=== PATIENT | male | born 1960 | race Caucasian/White ===

== ENCOUNTER → 2019-05-01 15:57 | Outpatient (BNVA) | payer MEDICARE, MEDICAID, SELFPAY | PROVIDERS: Family Provider Nurse Practitioner Family; PCP Nurse Practitioner Family; Referring Provider Family Medicine; Visit Provider Nurse Practitioner Family | DX: J20.8 Acute bronchitis due to other specified organisms (principal); B96.89 Other specified bacterial agents as the cause of diseases classified elsewhere | CPT/HCPCS: 87804 ==

== ENCOUNTER → 2019-05-10 11:50 | Outpatient (BNVA) | payer MEDICARE, SELFPAY | PROVIDERS: Family Provider Nurse Practitioner Family; PCP Nurse Practitioner Family; Visit Provider Nurse Practitioner Family | DX: M25.571 Pain in right ankle and joints of right foot (principal) | CPT/HCPCS: 73610 ==

== ENCOUNTER 2021-02-19 15:49 | Inpatient (IN) | payer MEDICARE, SELFPAY ==
[2021-02-19 15:55] VITALS: BP 155/103; PULSE 112; RESP 18; TEMP 36.8; O2SAT 97
--- NOTE | 2021-02-19 16:17 | USR_ITS ---
PROCEDURE INFORMATION: Exam: US Abdomen, Limited; Right Upper Quadrant Exam date and time: 02/19/2021 4:17 PM Age: 60 years old Clinical indication: Abdominal pain; Epigastric; Additional info: Abd pain TECHNIQUE: Imaging protocol: US abdomen. Real time ultrasound with image documentation. Limited exam focused on the right upper quadrant. COMPARISON: No relevant prior studies available. FINDINGS: Pleural spaces: There is a right pleural effusion. Liver: Somewhat inhomogeneous without a discrete mass lesions seen. There are small echogenic foci seen in the liver in a starry shelley appearance. This is nonspecific however can be seen with hepatitis. Gallbladder: There is a positive sonographic [place] sign. Gallbladder wall is thickened measuring 5 mm. Common bile duct: Bile duct is normal in caliber measuring 3.4 mm. Pancreas: Visualized pancreas is unremarkable. Right kidney: Right kidney measures 10.7 x 5.9 x 6.6 cm. No evidence for hydronephrosis, calculi, or mass. US/US gall bladder [id number] IMPRESSION: 1. Gallbladder wall is thickened and there is a positive sonographic [place] sign. No gallbladder stones are seen. Acalculous cholecystitis is in the differential. Wall thickening can be seen secondary to systemic diseases as well such as congestive heart failure, renal failure, hepatic cirrhosis, and hypoalbuminemia. 2. There is a right pleural effusion. 3. There are small echogenic foci seen in the liver in a starry shelley appearance. This is nonspecific however can be seen with hepatitis. Radiation Dose CTDIVOL = (mGy): DLP = (mGy-cm)
--- NOTE | 2021-02-19 16:17 | ECG_ITS ---
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 Measurements Intervals [place] Rate: 110 P: [place]: QRS: -12 QRSD: 96 T: 94 QT: 342 QTc: 464 Interpretive Statements ATRIAL FIBRILLATION WITH RAPID VENTRICULAR RESPONSE INDETERMINATE AXIS POSSIBLE RIGHT VENTRICULAR CONDUCTION DELAY [RSR (QR) IN V1/V2] NONSPECIFIC ST & T-WAVE ABNORMALITY Compared to ECG 06/16/2014 16:29:21 Indeterminate axis now present T-wave abnormality now present Sinus rhythm no longer present Electronically Signed On 02-20-2021 0:27:12 CDT by Moo Bashir M.D. [id number]
--- NOTE | 2021-02-19 16:17 | CTR_ITS ---
PROCEDURE INFORMATION: Exam: CT Abdomen And Pelvis With Contrast Exam date and time: 02/19/2021 4:17 PM Age: 60 years old Clinical indication: Abdominal pain; Localized; Prior surgery; Surgery date: 6+ months; Surgery type: Appy, back; Patient HX: C/O upper abd pain x 2 weeks TECHNIQUE: Imaging protocol: Computed tomography of the abdomen and pelvis with contrast. Radiation optimization: All CT scans at this facility use at least one of these dose optimization techniques: automated exposure control; mA and/or kV adjustment per patient size (includes targeted exams where dose is matched to clinical indication); or iterative reconstruction. Contrast material: OMNI 300; Contrast volume: 94 ml; Contrast route: INTRAVENOUS (IV); COMPARISON: US gall bladder [id number] 02/19/2021 4:57 PM RADIATION DOSE METRICS: Total DLP (mGy-cm): 715.2 FINDINGS: Pleural spaces: Bilateral pleural effusions with adjacent compressive atelectasis. Heart: Cardiomegaly. Liver: There is periportal edema which can be seen with volume overload, hepatitis, or cholangitis. Gallbladder and bile ducts: There is gallbladder wall thickening. Pancreas: Normal. No ductal dilation. Spleen: Normal. No splenomegaly. Adrenal glands: Normal. No mass. Kidneys and ureters: There is bilateral renal striated enhancement. Stomach and bowel: Colonic constipation is present. Appendix: There has been an appendectomy. Intraperitoneal space: Subtle diffuse hazy mesentery stranding. Vasculature: There is calcified plaque in the lower abdominal aorta and iliac arteries. Lymph nodes: Unremarkable. No enlarged lymph nodes. Urinary bladder: Unremarkable as visualized. Reproductive: Unremarkable as visualized. Bones/joints: Patient is status post L3-L4 posterior lumbar fusion with instrumentation. Soft tissues: Unremarkable. CT/CT abdomen pelvis w con* [id number] IMPRESSION: 1. Bilateral renal striated enhancement. Differential includes pyelonephritis, renal infarction, and left common causes such is vasculitis, multiple myeloma, rhabdomyolysis. 2. Cardiomegaly with bilateral pleural effusions consistent with congestive heart failure. 3. There is periportal edema which can be seen with volume overload, hepatitis, or cholangitis. 4. There is gallbladder wall thickening. This can be seen with cholecystitis or other systemic causes such is congestive heart failure. 5. Colonic constipation is present. Radiation Dose CTDIVOL = (mGy): DLP = 715.2 (mGy-cm)
--- NOTE | 2021-02-19 16:19 | W.ED.ABDPA2 ---
Documented by User: Mando Shoemaker DO 02/22/21 06:30 HPI - Abdominal Pain General: Chief Complaint: Abdominal Pain Stated Complaint: UPPER ABD PAIN HURTS LIKE HELL Time Seen by Provider: 02/19/21 16:08 History of Present Illness: HPI narrative: 60-year-old male presents emergency room complaint of right upper quadrant epigastric abdominal pain. He says he has had this for the last 2 weeks. He was seen yesterday at [facility] had some imaging done there including CT was told it was negative. He was started on what he describes as a little green pill he is also started on something for reflux. He denies any hematemesis coffee-ground emesis. Denies dysuria urgency or frequency no shortness of breath. MD elicited complaint: abdominal pain Pertinent past history: none Onset (ago): week(s) (2) Pain Consistency: constant Location: RUQ Severity: severe Quality: cramping Radiation: none Exacerbating factors: nothing Relieving factors: nothing Associated Symptoms: Reports anorexia and GI cramping; Denies belching, bloating, change in bowel habits, change in stool character, chills, coffee ground emesis, constipation, diarrhea, dyspepsia, dysuria, excessive flatus, fever(s), heartburn, hematochezia, hematuria, hematemesis, fecal incontinence, loose stools, melena, nausea, poor appetite, syncope and vomiting Review of Systems Const: Denies: fever(s) or chills ENMT: Denies: throat pain, ear or mastoid pain, nasal discharge or nasal congestion Card: Denies: syncope Resp: Denies: dyspnea, productive cough or non-productive cough GI: Reports: GI cramping; Denies: nausea, vomiting, hematemesis, coffee ground emesis, heartburn, diarrhea, constipation, bloating, belching, excessive flatus, fecal incontinence, change in bowel habits, change in stool character, hematochezia or melena : Denies: dysuria or hematuria Skin/Breast: Denies: rash or pruritus PFSH ED PFSH: Medical History Atrial fibrillation Chronic anticoagulation DVT (deep venous thrombosis) August 2020 Rotator cuff arthropathy Surgical History History of appendectomy Family History Grandfather Cancer Mother Cancer Social History Smoking and tobacco status: current every day smoker Alcohol intake: former Physical Exam Const: COMMON NORMALS: no acute distress GENERAL APPEARANCE: cooperative and comfortable ORIENTATION/CONSCIOUSNESS: Yes awake, Yes oriented to person, Yes oriented to place and Yes oriented to time HENMT: COMMON NORMALS: normocephalic, atraumatic and hearing grossly normal bilaterally HEAD & SCALP: normocephalic and atraumatic Neck/C-Spine: COMMON NORMALS: no JVD Resp: COMMON NORMALS: normal respiratory effort, No retractions, No use of accessory muscles and clear to auscultation bilaterally AUSCULTATION: clear to auscultation bilaterally Cardio: COMMON NORMALS: no JVD, regular rate, regular rhythm and No murmurs present (Cardio) RATE: regular rate RHYTHM: regular rhythm GI: COMMON NORMALS: No hepatosplenomegaly present AUSCULTATION: Yes normoactive bowel sounds PALPATION: Yes Tenderness to palpation present (GI) Details: RUQ, Yes Guarding due to palpation present (GI) and Yes No hepatosplenomegaly present Extremity: COMMON NORMALS: normal to inspection, capillary refill normal, no clubbing, cyanosis or edema, no calf tenderness and no pedal edema Neuro: SENSORIUM/ORIENTATION: Yes oriented to person, Yes oriented to place and Yes oriented to time Skin: COMMON NORMALS: no rashes or lesions noted GENERAL SKIN EXAM: no rashes or lesions noted Course Vital Signs: Vital signs: Vital Signs Temperature 98 F 02/22/21 02:37 Pulse Rate 91 02/22/21 06:04 Respiratory Rate 36 H 02/22/21 02:37 Blood Pressure 120/87 02/22/21 02:37 Pulse Oximetry 98 02/22/21 02:37 MDM - Abdominal Pain MDM Narrative: Medical decision making narrative: Care turned over to Dr. Hammonds at change of shift see his notes for final diagnosis and disposition. Lab Data: Labs: Lab Results 02/19/21 02/19/21 02/19/21 16:23 16:23 16:23 WBC 10.3 10^3/uL H 10 ^3/uL (4.0-10.0) RBC 5.00 10^6/uL 10^6 /uL (4.1-5.3) Hgb 14.7 g/dL g/dL (11.7-16.6) Hct 45.5 % % (42.0-52.0) MCV 91.0 fl fl (80-94) MCH 29.4 pg pg (28.0-34.0) MCHC 32.3 g/dL g/dL (30.0-36.0) RDW 14.1 % % (12.1-15.1) Plt Count 162 10^3/cmm 10^3 /cmm (130-400) MPV 10.3 fL fL (7.4-10.4) Neut % (Auto) 67.2 % % Lymph % (Auto) 23.1 % % Mcmullen % (Auto) 7.3 % % Eos % (Auto) 1.6 % % Baso % (Auto) 0.5 % % Neut # (Auto) 6.93 10^3/uL 10^3 /uL (1.8-7.7) Lymph # (Auto) 2.4 10^3/uL 10^3/ uL (0.8-4.8) Mcmullen # (Auto) 0.8 10^3/uL 10^3/ uL (0.2-0.9) Eos # (Auto) 0.2 10^3/uL 10^3/ uL (0.0-0.8) Baso # (Auto) 0.1 10^3/uL 10^3/ uL (0.0-0.1) Nucleated RBC % (a uto) 0 % % Nucleated RBCs # 0.0 /100WBC /100W BC Sodium 141 mmol/L mmol/L (136-145) Potassium 4.1 mmol/L mmol/L (3.5-5.1) Chloride 107 mmol/L mmol/L (98-107) Carbon Dioxide 22 mmol/L mmol/L (22-29) Anion Gap 16.1 (5-19) BUN 19 mg/dL mg/dL (6-20) Creatinine 1.0 mg/dL mg/dL (0.7-1.2) GFR Calculation 76.7 mL/min L mL/ min (90-130) Glucose 115 mg/dL mg/dL (65-115) Calculated Osmolal ity 295 mOsm/kg mOsm/ kg (285-295) Lactic Acid 1.4 mmol/L mmol/L (0.5-2.2) Calcium 8.6 mg/dL mg/dL (8.5-10.5) Total Bilirubin 0.8 mg/dL mg/dL (0.15-1.2) AST 23 U/L U/L (0-40) ALT 27 U/L U/L (0-41) Alkaline Phosphata se 132 IU/L H IU/L (40-130) Creatine Kinase 38 U/L L U/L (39-308) Troponin T Baselin e Troponin T [address] [place] Troponin T Troponin T Hi Sens 6Hr Troponin T Hi Sens 6Hr Delta NT-Pro-B Natriuret Pep Total Protein 6.0 g/dL L g/dL (6.6-8.7) Albumin 3.6 g/dL g/dL (3.5-5.2) Globulin 2.4 g/dL g/dL (1.3-4.6) Lipase 18 U/L U/L (13-60) Urine Color Urine Appearance Urine pH Ur Specific Gravit y Urine Protein Urine Glucose (UA) Urine Ketones Urine Blood Urine Nitrate Urine Bilirubin Urine Urobilinogen Ur Leukocyte Zofia ase Urine RBC Urine WBC Ur Squamous Epith Cells Amorphous Sediment Urine Bacteria Urine Mucus Hepatitis A IgM Ab Hep Bs Antigen Hep Bs Antibody Hep B Core Total A b Hepatitis C Antibo dy 02/19/21 02/19/21 02/19/21 16:23 16:23 16:50 WBC RBC Hgb Hct MCV MCH MCHC RDW Plt Count MPV Neut % (Auto) Lymph % (Auto) Mcmullen % (Auto) Eos % (Auto) Baso % (Auto) Neut # (Auto) Lymph # (Auto) Mcmullen # (Auto) Eos # (Auto) Baso # (Auto) Nucleated RBC % (a uto) Nucleated RBCs # Sodium Potassium Chloride Carbon Dioxide Anion Gap BUN Creatinine GFR Calculation Glucose Calculated Osmolal ity Lactic Acid Calcium Total Bilirubin AST ALT Alkaline Phosphata se Creatine Kinase Troponin T Baselin e 16 ng/L H ng/L (0-15) Troponin T [address] [place] Troponin T Troponin T Hi Sens 6Hr Troponin T Hi Sens 6Hr Delta NT-Pro-B Natriuret Pep Total Protein Albumin Globulin Lipase Urine Color Yellow (Yellow) Urine Appearance Clear (CLEAR) Urine pH 5 (5-7) Ur Specific Gravit y 1.020 (1.005-1.030) Urine Protein Neg (Negative) Urine Glucose (UA) Norm (Normal) Urine Ketones Negative (Negative) Urine Blood 2+ H (Negative) Urine Nitrate Negative (Negative) Urine Bilirubin Neg (Negative) Urine Urobilinogen 1 mg/dL H mg/dL (Negative) Ur Leukocyte Zofia ase Negative (Negative) Urine RBC 0-4 /hpf H /hpf (0-2) Urine WBC None /hpf /hpf (0-5) Ur Squamous Epith Cells None /hpf /hpf (0-5) Amorphous Sediment Not Reportable Urine Bacteria Trace /hpf /hpf (NONE) Urine Mucus 1+ /hpf /hpf Hepatitis A IgM Ab Non-reactive (Nonreactive) Hep Bs Antigen Non-reactive (Nonreactive) Hep Bs Antibody 3.5 L (11.5-1000) Hep B Core Total A b Non-reactive (Nonreactive) Hepatitis C Antibo dy Non-reactive (Nonreactive) 02/19/21 02/19/21 02/19/21 18:15 18:15 21:58 WBC RBC Hgb Hct MCV MCH MCHC RDW Plt Count MPV Neut % (Auto) Lymph % (Auto) Mcmullen % (Auto) Eos % (Auto) Baso % (Auto) Neut # (Auto) Lymph # (Auto) Mcmullen # (Auto) Eos # (Auto) Baso # (Auto) Nucleated RBC % (a uto) Nucleated RBCs # Sodium Potassium Chloride Carbon Dioxide Anion Gap BUN Creatinine GFR Calculation Glucose Calculated Osmolal ity Lactic Acid Calcium Total Bilirubin AST ALT Alkaline Phosphata se Creatine Kinase Troponin T Baselin e Troponin T [address] [place] 17.03 ng/L H ng/L (0-15) Delta Troponin T 1.03 ABS# ABS# (0-10) Troponin T Hi Sens 6Hr 20.35 ng/L H ng/L (0-15) Troponin T Hi Sens 6Hr Delta 4.35 ng/L ng/L (0-12) NT-Pro-B Natriuret Pep 8619 pg/mL H pg/m L (0-125) Total Protein Albumin Globulin Lipase Urine Color Urine Appearance Urine pH Ur Specific Gravit y Urine Protein Urine Glucose (UA) Urine Ketones Urine Blood Urine Nitrate Urine Bilirubin Urine Urobilinogen Ur Leukocyte Zofia ase Urine RBC Urine WBC Ur Squamous Epith Cells Amorphous Sediment Urine Bacteria Urine Mucus Hepatitis A IgM Ab Hep Bs Antigen Hep Bs Antibody Hep B Core Total A b Hepatitis C Antibo dy Discharge Plan Discharge Patient Disposition: Admitted As Inpatient Admit Provider: Renetta Andres Clinical Impression: Acute acalculous cholecystitis Atrial fibrillation Qualifiers: Atrial fibrillation type: unspecified Qualified Code(s): I48.91 - Unspecified atrial fibrillation Condition: Fair Coding Level of Care Code ED Flight Information Expediter for Chg Fwd Exam Comprehensive Documented by User: Romeo Hammonds DO 02/19/21 20:44 HPI - Abdominal Pain General: Chief Complaint: Abdominal Pain Stated Complaint: UPPER ABD PAIN HURTS LIKE HELL Time Seen by Provider: 02/19/21 16:08 PFSH ED PFSH: Medical History Atrial fibrillation Chronic anticoagulation DVT (deep venous thrombosis) August 2020 Rotator cuff arthropathy Surgical History History of appendectomy Family History Grandfather Cancer Mother Cancer Social History Smoking and tobacco status: current every day smoker Alcohol intake: former Course Consultations: Consultation #1: Dmitry Time: 20:18 Vital Signs: Vital signs: Vital Signs Temperature 98 F 02/22/21 02:37 Pulse Rate 91 02/22/21 06:04 Respiratory Rate 36 H 02/22/21 02:37 Blood Pressure 120/87 02/22/21 02:37 Pulse Oximetry 98 02/22/21 02:37 MDM - Abdominal Pain MDM Narrative: Medical decision making narrative: 60-year-old male originally seen by Dr. Bright and checked out to me at shift change. This gentleman has right upper quadrant pain, and has thickened gallbladder wall both by CT and ultrasound. His liver enzymes are not elevated. His bile duct is not dilated. He will be admitted for cholecystitis. He also has an irregular heart rate, atrial fibrillation on the monitor and on EKG. His delta troponin is not positive. His heart rates around 110. he will go to [facility]. Lab Data: Labs: Lab Results 02/19/21 02/19/21 02/19/21 16:23 16:23 16:23 WBC 10.3 10^3/uL H 10 ^3/uL (4.0-10.0) RBC 5.00 10^6/uL 10^6 /uL (4.1-5.3) Hgb 14.7 g/dL g/dL (11.7-16.6) Hct 45.5 % % (42.0-52.0) MCV 91.0 fl fl (80-94) MCH 29.4 pg pg (28.0-34.0) MCHC 32.3 g/dL g/dL (30.0-36.0) RDW 14.1 % % (12.1-15.1) Plt Count 162 10^3/cmm 10^3 /cmm (130-400) MPV 10.3 fL fL (7.4-10.4) Neut % (Auto) 67.2 % % Lymph % (Auto) 23.1 % % Mcmullen % (Auto) 7.3 % % Eos % (Auto) 1.6 % % Baso % (Auto) 0.5 % % Neut # (Auto) 6.93 10^3/uL 10^3 /uL (1.8-7.7) Lymph # (Auto) 2.4 10^3/uL 10^3/ uL (0.8-4.8) Mcmullen # (Auto) 0.8 10^3/uL 10^3/ uL (0.2-0.9) Eos # (Auto) 0.2 10^3/uL 10^3/ uL (0.0-0.8) Baso # (Auto) 0.1 10^3/uL 10^3/ uL (0.0-0.1) Nucleated RBC % (a uto) 0 % % Nucleated RBCs # 0.0 /100WBC /100W BC Sodium 141 mmol/L mmol/L (136-145) Potassium 4.1 mmol/L mmol/L (3.5-5.1) Chloride 107 mmol/L mmol/L (98-107) Carbon Dioxide 22 mmol/L mmol/L (22-29) Anion Gap 16.1 (5-19) BUN 19 mg/dL mg/dL (6-20) Creatinine 1.0 mg/dL mg/dL (0.7-1.2) GFR Calculation 76.7 mL/min L mL/ min (90-130) Glucose 115 mg/dL mg/dL (65-115) Calculated Osmolal ity 295 mOsm/kg mOsm/ kg (285-295) Lactic Acid 1.4 mmol/L mmol/L (0.5-2.2) Calcium 8.6 mg/dL mg/dL (8.5-10.5) Total Bilirubin 0.8 mg/dL mg/dL (0.15-1.2) AST 23 U/L U/L (0-40) ALT 27 U/L U/L (0-41) Alkaline Phosphata se 132 IU/L H IU/L (40-130) Creatine Kinase 38 U/L L U/L (39-308) Troponin T Baselin e Troponin T [address] [place] Troponin T Troponin T Hi Sens 6Hr Troponin T Hi Sens 6Hr Delta NT-Pro-B Natriuret Pep Total Protein 6.0 g/dL L g/dL (6.6-8.7) Albumin 3.6 g/dL g/dL (3.5-5.2) Globulin 2.4 g/dL g/dL (1.3-4.6) Lipase 18 U/L U/L (13-60) Urine Color Urine Appearance Urine pH Ur Specific Gravit y Urine Protein Urine Glucose (UA) Urine Ketones Urine Blood Urine Nitrate Urine Bilirubin Urine Urobilinogen Ur Leukocyte Zofia ase Urine RBC Urine WBC Ur Squamous Epith Cells Amorphous Sediment Urine Bacteria Urine Mucus Hepatitis A IgM Ab Hep Bs Antigen Hep Bs Antibody Hep B Core Total A b Hepatitis C Antibo dy 02/19/21 02/19/21 02/19/21 16:23 16:23 16:50 WBC RBC Hgb Hct MCV MCH MCHC RDW Plt Count MPV Neut % (Auto) Lymph % (Auto) Mcmullen % (Auto) Eos % (Auto) Baso % (Auto) Neut # (Auto) Lymph # (Auto) Mcmullen # (Auto) Eos # (Auto) Baso # (Auto) Nucleated RBC % (a uto) Nucleated RBCs # Sodium Potassium Chloride Carbon Dioxide Anion Gap BUN Creatinine GFR Calculation Glucose Calculated Osmolal ity Lactic Acid Calcium Total Bilirubin AST ALT Alkaline Phosphata se Creatine Kinase Troponin T Baselin e 16 ng/L H ng/L (0-15) Troponin T [address] [place] Troponin T Troponin T Hi Sens 6Hr Troponin T Hi Sens 6Hr Delta NT-Pro-B Natriuret Pep Total Protein Albumin Globulin Lipase Urine Color Yellow (Yellow) Urine Appearance Clear (CLEAR) Urine pH 5 (5-7) Ur Specific Gravit y 1.020 (1.005-1.030) Urine Protein Neg (Negative) Urine Glucose (UA) Norm (Normal) Urine Ketones Negative (Negative) Urine Blood 2+ H (Negative) Urine Nitrate Negative (Negative) Urine Bilirubin Neg (Negative) Urine Urobilinogen 1 mg/dL H mg/dL (Negative) Ur Leukocyte Zofia ase Negative (Negative) Urine RBC 0-4 /hpf H /hpf (0-2) Urine WBC None /hpf /hpf (0-5) Ur Squamous Epith Cells None /hpf /hpf (0-5) Amorphous Sediment Not Reportable Urine Bacteria Trace /hpf /hpf (NONE) Urine Mucus 1+ /hpf /hpf Hepatitis A IgM Ab Non-reactive (Nonreactive) Hep Bs Antigen Non-reactive (Nonreactive) Hep Bs Antibody 3.5 L (11.5-1000) Hep B Core Total A b Non-reactive (Nonreactive) Hepatitis C Antibo dy Non-reactive (Nonreactive) 02/19/21 02/19/21 02/19/21 18:15 18:15 21:58 WBC RBC Hgb Hct MCV MCH MCHC RDW Plt Count MPV Neut % (Auto) Lymph % (Auto) Mcmullen % (Auto) Eos % (Auto) Baso % (Auto) Neut # (Auto) Lymph # (Auto) Mcmullen # (Auto) Eos # (Auto) Baso # (Auto) Nucleated RBC % (a uto) Nucleated RBCs # Sodium Potassium Chloride Carbon Dioxide Anion Gap BUN Creatinine GFR Calculation Glucose Calculated Osmolal ity Lactic Acid Calcium Total Bilirubin AST ALT Alkaline Phosphata se Creatine Kinase Troponin T Baselin e Troponin T [address] [place] 17.03 ng/L H ng/L (0-15) Delta Troponin T 1.03 ABS# ABS# (0-10) Troponin T Hi Sens 6Hr 20.35 ng/L H ng/L (0-15) Troponin T Hi Sens 6Hr Delta 4.35 ng/L ng/L (0-12) NT-Pro-B Natriuret Pep 8619 pg/mL H pg/m L (0-125) Total Protein Albumin Globulin Lipase Urine Color Urine Appearance Urine pH Ur Specific Gravit y Urine Protein Urine Glucose (UA) Urine Ketones Urine Blood Urine Nitrate Urine Bilirubin Urine Urobilinogen Ur Leukocyte Zofia ase Urine RBC Urine WBC Ur Squamous Epith Cells Amorphous Sediment Urine Bacteria Urine Mucus Hepatitis A IgM Ab Hep Bs Antigen Hep Bs Antibody Hep B Core Total A b Hepatitis C Antibo dy Discharge Plan Discharge Patient Disposition: Admitted As Inpatient Admit Provider: Renetta Andres Clinical Impression: Acute acalculous cholecystitis Atrial fibrillation Qualifiers: Atrial fibrillation type: unspecified Qualified Code(s): I48.91 - Unspecified atrial fibrillation Condition: Fair Coding Level of Care Code ED Flight Information Expediter for [facility] Fwd Exam Comprehensive
[2021-02-19 16:25] VITALS: BP 153/109; PULSE 119; O2SAT 99
[2021-02-19] MEDS: ondansetron 2 mg/ML SDV 2 mL 4 MG IVP ×2 (16:28→19:50)
[2021-02-19] MEDS: sodium chloride 0.9% 1,000 ML 999 ML IV ×2 (16:31→17:10)
[2021-02-19 16:35] VITALS: BP 142/113; PULSE 102; PULSE 104; O2SAT 100; O2SAT 98
[2021-02-19 16:36] LABS: Basophils # 0.1 10^3/uL (0.0-0.1); Basophils % 0.5 %; Eosinophils # 0.2 10^3/uL (0.0-0.8); Eosinophils % 1.6 %; Hematocrit 45.5 % (42.0-52.0); Hemoglobin 14.7 g/dL (11.7-16.6); Lymphocytes # 2.4 10^3/uL (0.8-4.8); Lymphocytes % 23.1 %; Mean Corpuscular HGB Conc 32.3 g/dL (30.0-36.0); Mean Corpuscular Hemoglobin 29.4 pg (28.0-34.0); Mean Platelet Volume 10.3 fL (7.4-10.4); Monocytes # 0.8 10^3/uL (0.2-0.9); Monocytes % 7.3 %; Neutrophils # 6.93 10^3/uL (1.8-7.7); Neutrophils % 67.2 %; Nucleated Red Blood Cells % 0 %; Platelet Count 162 10^3/cmm (130-400); Red Cell Distribution Width 14.1 % (12.1-15.1); White Blood Count 10.3 10^3/uL (4.0-10.0)
[2021-02-19 16:58] LABS: Lactic Sepsis W/Reflex 1.4 mmol/L (0.5-2.2)
[2021-02-19 16:59] LABS: Alanine Aminotransferase 27 U/L (0-41); Albumin Level 3.6 g/dL (3.5-5.2); Alkaline Phosphatase 132 IU/L (40-130); Anion Gap 16.1 (5-19); Aspartate Amino Transferase 23 U/L (0-40); Blood Urea Nitrogen 19 mg/dL (6-20); Calcium 8.6 mg/dL (8.5-10.5); Carbon Dioxide 22 mmol/L (22-29); Chloride 107 mmol/L (98-107); Creatine Phosphokinase 38 U/L (39-308); Globulin 2.4 g/dL (1.3-4.6); Glomerular Filtration Rate 76.7 mL/min (90-130); Glucose 115 mg/dL (65-115); Lipase 18 U/L (13-60); Osmolality Calculated 295 mOsm/kg (285-295); Potassium 4.1 mmol/L (3.5-5.1); Sodium 141 mmol/L (136-145); Total Bilirubin 0.8 mg/dL (0.15-1.2)
[2021-02-19 17:00] LABS: Troponin(5th) Baseline 16 ng/L (0-15)
[2021-02-19 17:14] LABS: Add Urine Microscopic? YES; Bilirubin Urine Neg (Negative); Blood Urine 2+ (Negative); Glucose Urine UA Norm (Normal); Ketones Urine Negative (Negative); Leukocyte Esterase Urine Negative (Negative); Nitrate Urine Negative (Negative); Protein Urine Neg (Negative); Urine Appearance Clear (CLEAR); Urine Color Yellow (Yellow); Urobilinogen Urine 1 mg/dL (Negative); pH Urine 5 (5-7)
[2021-02-19 17:19] LABS: Add Urine Culture? No; Bacteria Urine TRACE /hpf; Mucus Urine 1+ /hpf; RBC Urine 0-4 /hpf (0-2)
[2021-02-19] MEDS: iohexol 300 mg/mL 100 mL Btl IV (17:37)
[2021-02-19] MEDS: morphine 4 mg/mL SDV 1 mL IVP ×2 (17:58→19:28)
--- NOTE | 2021-02-19 18:12 | XRR_ITS ---
PROCEDURE INFORMATION: Exam: XR Chest Exam date and time: 02/19/2021 6:12 PM Age: 60 years old Clinical indication: Cough; Additional info: Dyspnea/cough TECHNIQUE: Imaging protocol: XR of the chest. Views: 1 view. COMPARISON: CT abdomen pelvis w con* [id number] 02/19/2021 5:28 PM FINDINGS: Lungs: Diffuse interstitial thickening with no focal consolidation. No evidence of engorgement of the pulmonary vasculature. Pleural spaces: Small to moderate right and small left pleural effusions better appreciated on CT. No pneumothorax. Heart/Mediastinum: Moderate cardiomegaly. Normal mediastinal contours. Bones/joints: Old healed right rib fractures. XR/XR chest 1V portable [id number] IMPRESSION: 1. Diffuse interstitial thickening, correlate for nonspecific infectious or inflammatory airways process. No focal consolidation. There may be underlying chronic interstitial thickening. 2. Cardiomegaly without typical features of congestive failure. 3. Small to moderate right and small left pleural effusions better appreciated on CT. Radiation Dose CTDIVOL = (mGy): DLP = (mGy-cm)
[2021-02-19 18:47] LABS: Troponin 5 2HR 17.03 ng/L (0-15); Troponin 5 2HR Delta 1.03 ABS# (0-10)
[2021-02-19 18:55] LABS: NT Pro B Type Natriuretic Pept 8619 pg/mL (0-125)
[2021-02-19] MEDS: FUROsemide 10 mg/mL SDV 4mL 40 MG IVP (19:28)
[2021-02-19] MEDS: piperacillin-tazobactam 4.5 GM in sodium chloride 0.9% (plus) 50 ML IV (19:28)
[2021-02-19] MEDS: fentaNYL 50 mcg/mL INJ 2mL IVP (19:50)
[2021-02-19 20:00] VITALS: BP 133/99; PULSE 98; RESP 22; O2SAT 96
[2021-02-19 21:10] VITALS: BP 122/90; PULSE 92; RESP 20; O2SAT 98
[2021-02-19 21:21] VITALS: RESP 20
[2021-02-19] MEDS: HYDROmorphone 1 mg/mL INJ 1 mL IVP (21:21)
--- NOTE | 2021-02-19 22:17 | ECG_ITS ---
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 Measurements Intervals [place] Rate: 89 P: [place]: QRS: -42 QRSD: 96 T: 96 QT: 375 QTc: 458 Interpretive Statements ATRIAL FIBRILLATION LEFT AXIS DEVIATION [QRS AXIS < -30] POSSIBLE RIGHT VENTRICULAR CONDUCTION DELAY [RSR (QR) IN V1/V2] ST DEVIATION AND MODERATE T-WAVE ABNORMALITY, CONSIDER LATERAL ISCHEMIA [-0.1+ mV T WAVE IN I/aVL/V5/V6] Compared to ECG 02/19/2021 16:27:08 Left-axis deviation now present Possible ischemia now present Indeterminate axis no longer present T-wave abnormality still present Electronically Signed On 02-20-2021 18:39:37 CDT by Shanon Salas M.D. [email or web address]
[2021-02-19 22:33] LABS: Troponin 5 6HR 20.35 ng/L (0-15); Troponin 5 6HR Delta 4.35 ng/L (0-12)
[2021-02-20] VITALS (54 sets, daily range): BP systolic 94–125; BP diastolic 69–82; PULSE 74–113; RESP 3–30; TEMP 36.6–36.7; O2SAT 93–96
[2021-02-20] MEDS: HYDROmorphone 1 mg/mL INJ 1 mL IVP ×3 (00:31→20:12)
--- NOTE | 2021-02-20 00:45 | USCV_ITS ---
Wild Nj Age: 60 Gender: M : 1960 Exam Date: 02/20/2021 10:38 Ordering Phys: Renetta Andres MD Technologist: Mabel Becerra [place] [facility] [place] Indication: A FIB, CHF BP: 102 / 71 HR: 94 Rhythm: Atrial fibrillation Technical Quality: Adequate MEASUREMENTS (Male / Female) Normal Values 2D ECHO LV Diastolic Diameter PLAX 5.4 cm 4.2 - 5.9 / 3.9 - 5.3 cm LV Systolic Diameter PLAX 5.0 cm IVS Diastolic Thickness 1.3 cm 0.6 - 1.0 / 0.6 - 0.9 cm IVS Systolic Thickness 1.4 cm LVPW Diastolic Thickness 1.4 cm 0.6 - 1.0 / 0.6 - 0.9 cm LVPW Systolic Thickness 1.7 cm LVOT Diameter 2.0 cm LV Ejection Fraction 2D Teich 14.0 % LV Ejection Fraction MOD 2C 25.6 % LV Ejection Fraction 2C AL 23.6 % LA Diameter 3.1 cm LA Width 3.2 cm LA Height 5.1 cm RA Width 2.9 cm RA Height 4.5 cm Aorta at Sinotubular Diameter 2.4 cm M-MODE Aortic Annulus Diameter 2.4 cm LA Ao Ratio MM 1.2 MV E Point Septal Separation 1.2 cm DOPPLER AV Peak Velocity 72.0 cm/s LVOT Peak Velocity 47.0 cm/s AV Area Cont Eq vti 2.7 cm squared AV Area Cont Eq pk 2.1 cm squared MV Peak Velocity 80.0 cm/s MV Area PHT 5.9 cm squared MV E' Velocity 47.0 cm/s Mitral E to MV E' Ratio 14.0 Mitral E to LV E' Lateral Ratio 11.9 Mitral E to LV E' Septal Ratio 17.4 TR Peak Velocity 251.9 cm/s TR Peak Gradient 25.4 mmHg TR Mean Velocity 183.4 cm/s TR Mean Gradient 14.7 mmHg TR Velocity Time Integral 68.8 cm TV Peak E Velocity 47.0 cm/s Right Atrial Pressure 15.0 mmHg Pulmonary Artery Systolic Pressu 40.4 mmHg PV Peak Velocity 68.0 cm/s RV Acceleration Time 0.1 s RV Ejection Time 0.2 s RV AcT/ET 0.3 FINDINGS Left Ventricle Severe diffuse hypokinesis of the left ventricle with ejection fraction of around 20%.mildly increased left ventricular cavity size. Right Ventricle Normal RV size with a slightly diminished ejection fraction Right Atrium Mildly increased right atrial size. Left Atrium Mildly increased left atrial size. Mitral Valve Thickened mitral valve. Mild mitral valve regurgitation. Aortic Valve Thickened aortic valve. Tricuspid Valve Mild tricuspid valve regurgitation. Pulmonic Valve Structurally normal pulmonic valve. Pericardium Normal pericardium without effusion. Aorta Normal aortic annulus size. CONCLUSIONS Severe diffuse hypokinesis of the left ventricle with ejection fraction of around 20%. Mildly increased left ventricular cavity size. Mild biatrial enlargement. Thickened mitral valve. Mild mitral valve regurgitation. Thickened aortic valve. Mild tricuspid valve regurgitation. Estimated pulmonary artery peak systolic pressure of 40 mmHg There are no intracardiac masses. There is no pericardial effusion. No previous study is available for comparison. Dr Shanon Salas MD [facility] (Electronically Signed) Final Date: 20 February 2021 17:18 S
[2021-02-20] MEDS: famotidine 20 mg/2 mL INJ IVP ×3 (03:35→23:54)
[2021-02-20] MEDS: piperacillin-tazobactam 3.375 GM in sodium chloride 0.9% (plus) 50 ML IV ×3 (03:36→20:09)
[2021-02-20] MEDS: ketorolac 30 mg/mL INJ 15 MG IVP ×3 (05:29→22:33)
--- NOTE | 2021-02-20 05:44 | NUR.SHIFT ---
Shift Note Frequent safety and comfort rounds continue. Orders and/or nursing care completed as indicated. Patient monitored for response to intervention and treatment(s). Education provided includes new medication zosyn (uses,dose,adverse reaction etc.) ]. Patient and/or business development representative verbalizes understanding. Will continue to monitor.
--- NOTE | 2021-02-20 06:01 | PM.HP ---
Providers/Chief Complaint Admitting Physician: Renetta Andres MD Primary Care Provider: Frantz Guerin MD Chief Complaint: UPPER ABD PAIN HURTS LIKE HELL History of Present Illness Wild Nj is a 60 year old male with past medical history of intermittent A. fib, history of DVT in August 2020, presenting to the hospital today with complaints of right upper quadrant pain that has been going on for 3 days now. He initially went to [facility] ER 2 days ago where he had a CAT scan of his abdomen, was reportedly told that CT is normal at discharge 2. However the pain persisted and he presented at [facility] last night. Describes the pain as 9 out of 10 intensity, located in the right upper quadrant, radiating around in a bandlike fashion. He has never had similar pain in the past. No history of alcohol prescription. No chest pain dyspnea or palpitations. CT of the abdomen and ultrasound concerning for acalculous cholecystitis. Associated symptoms include nausea, poor p.o. intake, abdominal bloatin, no vomiting. Small bowel movements over the past 2 days. Past history is notable for what appears to be an unprovoked DVT of the left lower extremity in August 2020. Patient describes undergoing what appears to be a thrombectomy per his description. Records have been requested. No cause was ever established for the DVT. He has been on Xarelto 15 mg p.o. daily since then. 2 days after leaving the hospital for the DVT admission, he states he returned to the hospital for fluid overload and was diagnosed with A. fib with RVR. However he is not on any rate control medications currently. Not currently on any diuretics. Review of systems negative for fever Review of Systems General: Reports: 10 or more systems reviewed and unremarkable except in HPI and below Const: Denies: fever(s), chills or body aches Eyes: Denies: change in vision, blurry vision or photophobia ENMT: Reports: hoarseness; Denies: throat pain, enlarged tonsils, odynophagia or nasal congestion Card: Denies: chest pain, palpitations, irregular heart rhythm, edema, swelling of feet/ankles, lightheadedness, pre-syncope, dyspnea on exertion or orthopnea Resp: Denies: dyspnea, productive cough, non-productive cough, wheezing, stridor, pain on inspiration, change in phlegm color, hemoptysis or chest congestion GI: Denies: abdominal pain, nausea, vomiting, hematemesis, coffee ground emesis, dysphagia, heartburn, diarrhea, constipation, GI cramping, change in stool character, hematochezia or melena : Denies: flank pain, dysuria, urinary frequency, urinary urgency, urinary hesitancy or hematuria Musc: Denies: neck pain, back pain, extremity pain, joint swelling, joint warmth or deformity Neuro: Denies: headache(s), numbness in extremities, weakness in extremities, sensory changes, difficulty walking, frequent falls, dizziness, vertigo, behavioral changes, Slurred speech present or seizure-like activity Psych: Denies: anxiety, depression, suicidal ideation or homicidal ideation Endo: Denies: polyuria, polydipsia, tired all the time, cold intolerance or hot flashes Shahriar/Lymph: Denies: easy bruising or easy bleeding Medications/Allergies Home Medications Medication Instructions Recorded Confirmed Last Taken Type esomeprazole magnesium [Nexium] 20 mg PO DAILY 02/20/21 02/20/21 Unknown History Allergies Allergy/AdvReac Type Severity Reaction Status Date / Time No Known Allergies Allergy Verified 05/01/19 16:13 PFSH Acute PFSH: Medical History (Updated 02/20/21 @ 06:19 by Renetta Andres MD) Atrial fibrillation Chronic anticoagulation DVT (deep venous thrombosis) August 2020 Rotator cuff arthropathy Surgical History (Updated 02/20/21 @ 06:12 by Renetta Andres MD) History of appendectomy Family History Grandfather Cancer Mother Cancer Social History Smoking and tobacco status: current every day smoker Alcohol intake: former Vitals/I&O/Wt Last Vital Signs Temp 98.1 F 02/20/21 00:40 Pulse 110 H 02/20/21 05:55 Resp 21 H 02/20/21 03:53 BP 115/82 02/20/21 03:53 Pulse Ox 94 02/20/21 03:53 02/19/21 02/19/21 02/20/21 14:59 22:59 06:59 Intake Total 1150 / 1150 1100 / 2250 Output Total 800 / 800 Balance 350 / 350 1100 / 1450 Weight last 48 hrs Weight 63.503 kg Physical Exam Narrative: EXAM NARRATIVE: General: No acute distress, AO x3 HEENT: PERRLA, pupils bilaterally equal and reactive, pallors not present Chest: Normal vesicular breath sounds, no added sounds, equal good air entry bilaterally CVS: S1-S2 regular, no murmurs, no tachycardia, no gallops, no rubs Abdomen: Soft, to palpation in epigastric and right upper quadrant, no organomegaly, bowel sounds present Neuro: No focal deficits, no facial deformity, AO x3, power 5/5 in all limbs Extremities: No edema clubbing or cyanosis Data : 02/19/21 16:23 02/19/21 16:23 Micro: Microbiology 02/19/21 20:30 Blood Culture - Preliminary Blood SPECIMEN COLLECTED 02/19/21 18:15 Blood Culture - Preliminary Blood SPECIMEN COLLECTED A&P Assessment and plan (1) Acute acalculous cholecystitis: Presenting today with right upper quadrant pain, poor p.o. intake, abdominal bloating. CT and ultrasound concerning for acalculous cholecystitis. N.p.o., Bowel rest Toradol and Dilaudid alternating for pain management As needed Zofran for nausea. Piperacillin tazobactam empirically Surgical consult to assess for cholecystectomy. Status: Acute (2) Atrial fibrillation: Currently rate controlled with heart rate between 90-1 10 Diagnosed in August 2020, per patient description also had presented with fluid overload versus CHF at the time of initial presentation. However do not see any diuretics or rate rate control medications on his home medication list. He takes lisinopril 2.5 mg p.o. daily. Also on Xarelto 15 mg p.o. daily for history of DVT and A. fib. Xarelto has been placed temporarily on hold in case moves to cholecystectomy Requested records from [facility] Started on metoprolol 2.5 mg IV every 4 hours for now, transition to p.o. once able to tolerate p.o. intake. Echocardiogram to estimate EF, assess valvular status, diastolic function. Status: Acute Qualifiers: Atrial fibrillation type: unspecified Qualified Code(s): I48.91 - Unspecified atrial fibrillation (3) Chronic anticoagulation: With Xarelto for DVT and A. fib as above. Placed on hold today, last dose taken 02/19/2021 If prolonged interruption anticipated, may need heparin versus Lovenox in the perioperative period Status: Acute (4) Pleural effusion: May be related to CHF given patient's history, elevated BNP Lasix 20 mg IV push every 24 hours Avoiding IV fluids for now Status: Acute Attestations Medical Necessity Statement*: Anticipate greater than 2 midnight admission for above defined care Coding Level of Care Code Acute Manager Mobile for [facility] F[facility] Diagnoses Acute acalculous cholecystitis K81.0 Atrial fibrillation I48.91 Atrial fibrillation type: unspecified Chronic anticoagulation Z79.01 Pleural effusion J90
[2021-02-20] MEDS: metoprolol tartrate 1 mg/1 mL SDV 5 mL 2.5 MG IVP ×2 (06:12→10:25)
--- NOTE | 2021-02-20 06:40 | P.CONIM_ITS ---
Providers/Reason For Consult Consulting Physician/Specialty*: Mukund Dejesus MD Reason for Consult*: Concern for cholecystitis associated with right upper quadrant abdominal pain Requesting Physician: Dr. Andres Attending Physician: Renetta Andres MD Primary Care Provider: Frantz Guerin MD History of Present Illness History of Present Illness Chief Complaint: I have a arnold in my stomach History of present illness: Mr. Wild Nj is a pleasent 60 year old male presents to the emergency department of [facility] with right upper quadrant abdominal pain, radiating around his torso. Patient gives history of nausea, bloating but no vomiting. Apparently the patient went to [facility] 2 to 3 days ago and had a CT scan of his abdomen and according to the patient it was normal and patient was discharged home. Patient denies similar episodes in the past. Past medical history of atrial fibrillation with RVR, history of DVT back in August 2020 and was placed on Xarelto. Per hospitalist input that the patient is currently not receiving any diuretics or any rate control medications. Patient undergone further work-up in the form of laboratory blood work that showed WBC count of 10.3 otherwise CBC within normal limits, alkaline phosphatase 132 otherwise LFTs are normal as well as bilirubin. Further work-up in the form of CT scan of the abdomen pelvis with contrast that was done . Bilateral renal striated enhancement. Differential includes pyelonephritis, renal infarction, and left common causes such is vasculitis, multiple myeloma, rhabdomyolysis. 2. Cardiomegaly with bilateral pleural effusions consistent with congestive heart failure. 3. There is periportal edema which can be seen with volume overload, hepatitis, or cholangitis. 4. There is gallbladder wall thickening. This can be seen with cholecystitis or other systemic causes such is congestive heart failure. 5. Colonic constipation is present. findings below. Ultrasound of the liver and gallbladder was done that showed: 1. Gallbladder wall is thickened and there is a positive sonographic [place] sign. No gallbladder stones are seen. Acalculous cholecystitis is in the differential. Wall thickening can be seen secondary to systemic diseases as well such as congestive heart failure, renal failure, hepatic cirrhosis, and hypoalbuminemia. 2. There is a right pleural effusion. 3. There are small echogenic foci seen in the liver in a starry shelley appearance. This is nonspecific however can be seen with hepatitis. Chest x-ray shows 1. Diffuse interstitial thickening, correlate for nonspecific infectious or inflammatory airways process. No focal consolidation. There may be underlying chronic interstitial thickening. 2. Cardiomegaly without typical features of congestive failure. 3. Small to moderate right and small left pleural effusions better appreciated on CT. General surgery was consulted for further evaluation with regard to the concern of potential cholecystitis Further history obtained from the patient as he denies any history of fatty dyspepsia in fact he eats fried chicken and addS dressing on the salad without any issues, which does not match the potential findings on the ultrasound and the CT scan with regard to the gallbladder. Patient reports heartburn intermittently. Patient reports that his symptoms has been going on for the past 2 months and just got worse over the past couple of weeks. Review of Systems General: Reports: 10 or more systems reviewed and unremarkable except in HPI and below Meds/Allergies Home Medications and Allergies Home Medications Medication Instructions Recorded Confirmed Last Taken Type esomeprazole magnesium [Nexium] 20 mg PO DAILY 02/20/21 02/20/21 Unknown History Allergies Allergy/AdvReac Type Severity Reaction Status Date / Time No Known Allergies Allergy Verified 02/20/21 07:08 Current Medications Current Medications Generic Name Dose Route Start Last Admin Trade Name Freq PRN Reason Stop Dose Admin Famotidine 20 mg 02/20/21 00:45 02/20/21 03:35 Famotidine 20 Mg/2 Ml Inj IVP 20 mg Q12H ANGELINA Administration Piperacillin Sod/Tazobactam 50 mls @ 12.5 mls/hr 02/20/21 04:00 02/20/21 03:52 Sod 3.375 gm/ Sodium Chloride IV Infused Q8H ANGELINA Infusion Protocol Ketorolac Tromethamine 15 mg 02/20/21 01:00 02/20/21 05:29 Ketorolac 30 Mg/Ml Inj IVP 02/25/21 00:59 15 mg Q8H PRN Administration MODERATE PAIN Metoprolol Tartrate 2.5 mg 02/20/21 06:00 02/20/21 06:12 Metoprolol Tartrate 1 Mg/1 Ml Sdv 5 Ml IVP 2.5 mg Q4H ANGELINA Administration PFSH Acute PFSH: Medical History Atrial fibrillation Chronic anticoagulation DVT (deep venous thrombosis) August 2020 Rotator cuff arthropathy Surgical History History of appendectomy Family History Grandfather Cancer Mother Cancer Social History Smoking and tobacco status: current every day smoker Alcohol intake: former Vitals/I&O/Wt Last Vital Signs Temp 98.1 F 02/20/21 00:40 Pulse 110 H 02/20/21 05:55 Resp 21 H 02/20/21 03:53 BP 115/82 02/20/21 03:53 Pulse Ox 94 02/20/21 03:53 02/19/21 02/19/21 02/20/21 14:59 22:59 06:59 Intake Total 1150 / 1150 1100 / 2250 Output Total 800 / 800 Balance 350 / 350 1100 / 1450 Weight last 48 hrs Weight 140 lb Physical Exam Const: COMMON NORMALS: no acute distress and patient oriented x3 GENERAL APPEARANCE: cooperative ORIENTATION/CONSCIOUSNESS: Yes awake, Yes oriented to person, Yes oriented to place and Yes oriented to time HENMT: COMMON NORMALS: normocephalic HEAD & SCALP: normocephalic Eye: COMMON NORMALS: Equal, round and reactive pupils present and no scleral icterus PUPIL: Yes Equal, round and reactive pupils present Lymph: LYMPHATIC: no lymphadenopathy noted Chest: COMMONS NORMALS: normal inspection of the chest Resp: COMMON NORMALS: normal respiratory effort and clear to auscultation bilaterally AUSCULTATION: clear to auscultation bilaterally Cardio: COMMON NORMALS: S1 normal heart sound present and S2 normal heart sound present; negative for No murmurs present (Cardio) HEART SOUNDS: S1 normal heart sound present and S2 normal heart sound present GI: COMMON NORMALS: Soft to palpation; negative for No hepatosplenomegaly present INSPECTION: Yes normal to inspection PALPATION: Yes Soft to palpation, No Firmness to palpation present (GI), Yes Tenderness to palpation present (GI) Details: RUQ (And epigastric area), No Guarding due to palpation present (GI), No Rigid due to palpation and No No hepatosplenomegaly present Extremity: NARRATIVE EXTREMITY EXAM: Left lower extremity scar for previous vein surgery Neuro: COMMON NORMALS: patient oriented x3 SENSORIUM/ORIENTATION: Yes oriented to person, Yes oriented to place and Yes oriented to time Psych: COMMON NORMALS: mental status grossly normal Skin: COMMON NORMALS: no rashes or lesions noted GENERAL SKIN EXAM: no rashes or lesions noted Data Micro: Micro: Microbiology 02/19/21 20:30 Blood Culture - Pr eliminary Blood SPECIMEN [facility] 02/19/21 18:15 Blood Culture - Pr eliminary Blood SPECIMEN [facility] A&P Assessment and plan (1) Right upper quadrant pain: After thorough history physical examination and reviewing the chart and images with my personal interpretation. Of the CT scan of the abdomen and pelvis and the ultrasound with the findings of the bilateral pleural effusion more on the right side as well as the periportal edema and some thickness of the gallbladder wall. Patient symptoms are not consistent with gallbladder pathology and the findings on the imaging studies could be a component of heart failure and chronic liver congestion.Particularly with the periportal edema demonstrated on the CT scan. 1-I would recommend to obtain a HIDA scan to assess better the gallbladder functionality 2-Medical optimization and addressing patient's underlying potential heart failure 3-I do not find an urgency to chilel for gallbladder surgery at the moment 4-Repeat physical examination 5-pharmacologic DVT prophylaxis 6-clear liquid diet for now and n.p.o. after midnight obtain a HIDA scan first thing in the morning. 7-echocardiogram per hospitalist service. I did discuss in length and in depth with the patient and more than 50% of the clinical encounter was spent with the patient clarifying the findings on the CT scan of the Abdomen and pelvis and the ultrasound of the Liver and GB. And I did explain for the patient that the gallbladder could be part of his symptoms yet cardiac component with potential underlying heart failure has to be addressed as that could be contributing more for his current symptoms. We will reevaluate the patient after obtaining the HIDA scan and discuss potential options with regard to potential intervention for gallbladder surgery if warranted during this hospitalization versus elective down the road as an outpatient after appropriate medical optimization. Thank you for consulting general surgery to participate taking care Status: Acute Consult Attestations Medical Necessity Statement: Per admitting service Time Spent in Patient Care: 16 - 35 minutes (>than 50% of time spent in counselling and/or direct pt care on unit) . 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
[2021-02-20 06:53] LABS: Hepatitis A Antibody IgM Non-Reactive (Nonreactive); Hepatitis B Core AB, Total Non-Reactive (Nonreactive); Hepatitis B Surface AB 3.5 (11.5-1000); Hepatitis B Surface Antigen Non-Reactive (Nonreactive); Hepatitis C Virus Antibody Non-Reactive (Nonreactive)
[2021-02-20] MEDS: FUROsemide 10 mg/mL SDV 2mL 20 MG IVP ×2 (08:51→16:16)
[2021-02-20] MEDS: lisinopril 2.5 mg Tablet PO (08:51)
--- NOTE | 2021-02-20 10:39 | PC.CHAP ---
Pastoral Care Encounter/Spiritual Assessment Type of Contact [] Declined baggage agent visit [] Patient/Family/Request visit [] Outpatient visit [] Follow-up visit [] Physician referral [] Code/Alert [x] Routine visit [] Staff referral [] Actively dying [] Patient sleeping [] Family support [] [] Out of room [] Palliative care [] [] Receiving care in room [] Pre-surgical visit [] Trauma [] Long length of stay [] ICU visit [] Other: Relational/Emotional Strength [x] Patient feels connected with others/family/visitors/staff [] Distress [] Loneliness/isolation [] Abandonment Spirituality of Patient [x] Person of Jacquelyn [] Attends Gnosticist of their Jacquelyn [x] Believes in Prayer [] Reads Bible or Hindu materials [] There are Spiritual issues to be addressed [employer] Interventions [x] Prayer [xx] Active listening [x] Non-anxious presence [x] Spiritual/emotional support [] Crisis/trauma care [] Spiritual counseling [] Bereavement support [] Provided bereavement packet [] Provided Bible/devotional materials [] Provided toy/stuffed animal, coloring book to patient or family member [] Provided Communion [] Anointing/[place] [] Salvation [x] Completed spiritual assessment [] Other: Impact on Illness or Injury [] Angry [] Fearful [] Anxious [] Often cries [] Exhaustion [] Unable to work [] Unable to attend denominational [] Unable to walk/stand [] Unable to read [] Unable to drive [] Unable to eat/drink [] Unable to sleep [] Unable to be with family [] Patient intubated [] Other: Summary [employer] B[employer]er prayed with patient Time spent with patient 8 minutes.
--- NOTE | 2021-02-20 12:02 | P.PN_ITS ---
Subjective Subjective: Interval history: Seen this morning. Patient states that he was at [facility] recently where he had a lot of work-up done and he had a DVT as well he was placed on Xarelto. He states he was also placed on a lot of other medications which he stopped taking on his own because he believes they were killing him. They were giving him dry heaves. He stated that when that happens your body tells you that the medication is not right for you. On reviewing the list of medications it seems he was on diuretics, aspirin, Coreg, metoprolol, Protonix, Aldactone, lisinopril. Currently patient states that the only thing he takes his Xarelto, Lipitor, vitamin C, vitamin D and thyroid medication. On review of records it is also evident that patient has hyperthyroidism and was on methimazole. But he is not currently taking that. There seems to be a questionable diagnosis of heart failure as well. I have requested complete records from [facility] and I will be reviewing those and updating the chart. Vitals/I&O/Wt Last Vital Signs Temp 98.1 F 02/20/21 00:40 Pulse 95 02/20/21 08:00 Resp 20 H 02/20/21 08:00 BP 125/73 02/20/21 08:00 Pulse Ox 95 02/20/21 08:00 02/19/21 02/20/21 02/20/21 22:59 06:59 14:59 Intake Total 1150 / 1150 1100 / 2250 430 / 430 Output Total 800 / 800 300 / 300 Balance 350 / 350 1100 / 1450 130 / 130 Weight last 48 hrs Weight 63.503 kg Physical Exam Narrative: EXAM NARRATIVE: General: Alert oriented x3, patient seen sitting up in bed appearing comfortable. Appears cachectic and frail. HEENT: Normocephalic, atraumatic, EOMI, breathing room air Cardio: Regular rate rhythm, normal S1-S2, no murmurs rubs gallops, Respiratory: Good bilateral air entry, very mild crackles heard bilaterally, no wheezes no rhonchi appreciated GI: Abdomen soft, mildly tender to palpation in the right upper quadrant. Nondistended, bowel sounds + Behavior: Appropriate and cooperative Extremities: Trace lower extremity edema present bilaterally. no cyanosis Data : 02/19/21 16:23 02/19/21 16:23 Micro: Microbiology 02/19/21 20:30 Blood Culture - Preliminary Blood SPECIMEN COLLECTED 02/19/21 18:15 Blood Culture - Preliminary Blood SPECIMEN COLLECTED A&P Assessment and plan (1) Acute acalculous cholecystitis: Presenting today with right upper quadrant pain, poor p.o. intake, abdominal bloating. CT and ultrasound concerning for acalculous cholecystitis. Seen by general surgery this morning. Will allow patient to have clear liquids at this point. N.p.o. at midnight today for HIDA scan in a.m. No emergent surgery required for cholecystectomy at this point due to patient's heart failure status. As needed Zofran for nausea. Piperacillin tazobactam empirically We will see HIDA scan and proceed forward accordingly. Status: Acute (2) Atrial fibrillation: Currently rate controlled with heart rate between 90-1 10 Diagnosed in August 2020, per patient description also had presented with fluid overload versus CHF at the time of initial presentation. However do not see any diuretics or rate rate control medications on his home medication list. He takes lisinopril 2.5 mg p.o. daily. Also on Xarelto 15 mg p.o. daily for history of DVT and A. fib. Xarelto has been placed temporarily on hold in case moves to cholecystectomy Requested records from [facility] Since patient is able to have clear liquids at this point I have put him on metoprolol 12.5 twice daily. Patient was on Coreg at home but refuses to take it because he says it was killing him. Echocardiogram has been ordered. Will await results and proceed. I will also review all the records that have been here from [facility] this afternoon and then manage accordingly. Status: Acute Qualifiers: Atrial fibrillation type: unspecified Qualified Code(s): I48.91 - Unspecified atrial fibrillation (3) Chronic anticoagulation: With Xarelto for DVT and A. fib as above. Placed on hold today, last dose taken 02/19/2021 We will hold Eliquis till tomorrow. Depending on HIDA scan I will either put him on Lovenox versus restarting Eliquis. I discussed with general surgery over the phone there is a possibility that cholecystectomy would be done in 4 weeks as an outpatient as it does not seem to be an emergent problem at this point. We need to optimize him from his heart failure standpoint and his bilateral pleural effusions. Status: Acute (4) Pleural effusion: Elevated BNP on admission. Echo pending. We will continue to diurese patient at this point. Will review records and update chart for further management. Status: Acute Additional A&P Information Patient also states that he would like to set him self up with the primary care physician and a brim stiffener here in town in [place] as he is not interested to go back to [facility]. I told him we can talk about it at discharge. Attestations Medical Necessity Statement*: Anticipate greater than 48 hours of hospital stay. Time Spent in Patient Care: Greater than 35 minutes Coding Level of Care Code Acute Premium Cancellation Clerk for [facility] Fwd Diagnoses Acute acalculous cholecystitis K81.0 Atrial fibrillation I48.91 Atrial fibrillation type: unspecified Chronic anticoagulation Z79.01 Pleural effusion J90
--- NOTE | 2021-02-20 17:47 | P.MISC_ITS ---
Miscellaneous Note Purpose of Documentation: Reviewing records from [facility] Coronary angio 09/11/2020 Left main: The left main coronary artery arises from the left sinus of Valsalva, is a medium caliber vessel and with no evidence of disease. LAD: The left anterior descending coronary artery arises from the left main is a medium caliber vessel and with no evidence of disease. The distal LAD is small in size and not diseased. The first diagonal is medium in size and not disease. Circumflex: The proximal circumflex is small in size and not diseased. Patient did have a paradoxical reaction and became violent during procedure so procedure was aborted before injecting the RCA. RCA not visualized. Echocardiogram obtained 09/05/2020 Normal left ventricular cavity size. Normal left ventricular wall thickness. Left ventricular systolic function severely decreased. Visually estimated ejection fraction is 30 to 35%. The calculated ejection fraction is 35% by biplane method. There is mild to moderate mitral valve regurgitation. There is mild to moderate tricuspid valve regurgitation. There is normal left ventricular wall thickness. Right ventricular normal right ventricle cavity size and systolic function. The left atrium is dilated. Aortic valve is normal structure and function. There is mild to moderate mitral valve regurgitation. Pulmonic valve is likely normal. No dilation of aortic root measuring 3.2 cm. Inferior vena cava was not well-visualized. There is no evidence of pericardial effusion. Inferior vena cava was not well visualized. There is no evidence of pericardial effusion. Patient was seen at [facility] on September 09, 2020 for shortness of breath. He was started on diuretic therapy and he improved significantly. Troponin was elevated to 1400 and BNP was 4700 at admission. Delta troponin II 118 and he went for cardiac cath for which the results are listed at the top for coronary angiogram. He does have a past medical history of former smoking, COPD, recent left leg pain with associated embolism to popliteal artery status post embolectomy of tibial vessels and popliteal artery. He also has hypothyroidism and was on methimazole. Developed new onset atrial fibrillation and was started on Xarelto. Patient discharge summary from September 12, 2020 Patient presented with shortness of breath and chest pressure. He was recently hospitalized from 09/04 through 09/08/2020 for left popliteal arterial occlusion. He was also newly diagnosed with reduced EF, A. fib and hypothyroidism. He was seen by vascular surgery and underwent an embolectomy on 09/06/2020. He was started on Xarelto. He was also seen by endocrinology and started on methimazole. Troponins were 1400 with delta of 218. He received Lasix. Cardiac catheterization was completed. Left heart cath was done no stents were placed but they could not visualize the right coronary artery and its branches due to adverse reaction to benzodiazepine. At that point patient was discharged home. He was discharged on atorvastatin 40 daily, Coreg 3.125 twice daily, potassium 1 tablet daily, lisinopril 2.5 daily, methimazole 5 mg daily, spironolactone 25 mg daily, Xarelto 15 mg daily.
--- NOTE | 2021-02-20 19:17 | P.CONIM_ITS ---
Providers/Reason For Consult Consulting Physician/Specialty*: LANDON Salas MD/Cardiology Reason for Consult*: Patient with a history of atrial fibrillation, presenting with epigastric/upper abdominal pain. Echocardiogram revealing severe LV systolic dysfunction Attending Physician: Katrin Pruett MD Primary Care Provider: Frantz Guerin MD History of Present Illness History of Present Illness [place] is a 60 year old male is admitted to hospital with complaints of a epigastric/upper abdominal pain and shortness of breath. This patient has been complaining of epigastric/upper abdominal pain for the last 3 to 4 days. He graded with insidious pain as moderate to severe. He also has some shortness of breath and nausea . No vomiting or diarrhea. He was seen in the [facility] emergency room for these complaints 3 days ago. He had a CT of the abdomen and was told to be okay. Since there was no relief of his symptoms, he came to our emergency room. Currently he is being treated as acalculus cholecystitis. His CT of the abdomen showed periportal edema and mild bilateral pleural effusion. His BNP was 8619. In August of this year, patient was admitted to the [facility], for a blood clot in his left leg. He had? Surgical thrombectomy. Details are not available. He was placed on Xarelto. Soon after the hospital discharge, he went into heart failure? And had to be readmitted. He underwent some cardiac work-up including? Cardiac catheterization. The details are not available. Patient has no previous history for any cardiac illness. He was placed on several medications at the time of the hospital discharge. But according the patient, he was feeling sick with medications and for that reason, he stopped taking all of them. He has no document history for coronary artery disease or myocardial infarction. Patient's father had a coronary disease and had a permanent pacer implantation. Apparently he was in his 60s when he started having the heart problems. No other relevant family history. He has been smoking a pack a day for the last more than 30 years. No alcohol abuse or any other substance abuse Review of Systems Narrative: CONSTITUTIONAL: No fever or chills. Has a feeling of generalized weakness. EYES: No blurring of vision or other visual disturbances lately. ENT: No hoarseness of voice, auditory disturbances or sore throat. CARDIOVASCULAR: As mentioned above. RESPIRATORY: Has intermittent orthopnea and PND GASTROINTESTINAL: Intermittent episodes of nausea and abdominal pain/epigastric fullness GENITOURINARY: No dysuria or hematuria. INTEGUMENTARY: No skin rashes or history of skin cancer. NEURO: No transient ischemic attacks or amaurosis. PSYCHIATRIC: No history of psychosis or major depression. HEMATOLOGIC: No bleeding disorders or significant anemia. ENDOCRINE: No history of polyuria or polydipsia. MUSCULOSKELETAL: No recent joint pain or swelling. ALLERGY/IMMUNOLOGY: As mentioned above. Meds/Allergies Home Medications and Allergies Home Medications Medication Instructions Recorded Confirmed Last Taken Type esomeprazole magnesium [Nexium] 20 mg PO DAILY 02/20/21 02/20/21 Unknown History rivaroxaban [Xarelto] 2.5 mg PO QAM 02/20/21 02/20/21 02/19/21 History Allergies Allergy/AdvReac Type Severity Reaction Status Date / Time No Known Allergies Allergy Verified 02/20/21 07:08 Current Medications Current Medications Generic Name Dose Route Start Last Admin Trade Name Freq PRN Reason Stop Dose Admin Famotidine 20 mg 02/20/21 00:45 02/20/21 12:41 Famotidine 20 Mg/2 Ml Inj IVP 20 mg Q12H ANGELINA Administration Furosemide 20 mg 02/20/21 16:00 02/20/21 16:16 Furosemide 10 Mg/Ml Sdv 2ml IVP 20 mg Q24H ANGELINA Administration Hydromorphone HCl 1 mg 02/20/21 00:59 02/20/21 16:16 Hydromorphone 1 Mg/Ml Inj 1 Ml IVP 1 mg Q6H PRN Administration pain Piperacillin Sod/Tazobactam 50 mls @ 12.5 mls/hr 02/20/21 04:00 02/20/21 16:18 Sod 3.375 gm/ Sodium Chloride IV Infused Q8H ANGELINA Infusion Protocol Ketorolac Tromethamine 15 mg 02/20/21 01:00 02/20/21 12:42 Ketorolac 30 Mg/Ml Inj IVP 02/25/21 00:59 15 mg Q8H PRN Administration MODERATE PAIN Lisinopril 2.5 mg 02/20/21 09:00 02/20/21 08:51 Lisinopril 2.5 Mg Tablet PO 2.5 mg DAILY ANGELINA Administration PFSH Acute PFSH: Medical History Atrial fibrillation Chronic anticoagulation DVT (deep venous thrombosis) August 2020 Rotator cuff arthropathy Surgical History History of appendectomy Family History Grandfather Cancer Mother Cancer Social History Smoking and tobacco status: current every day smoker Alcohol intake: former Vitals/I&O/Wt Last Vital Signs Temp 98.1 F 02/20/21 00:40 Pulse 82 02/20/21 16:00 Resp 20 H 02/20/21 16:16 BP 100/73 02/20/21 16:00 Pulse Ox 93 02/20/21 16:16 02/20/21 02/20/21 02/20/21 06:59 14:59 22:59 Intake Total 1100 / 2250 790 / 790 420 / 1210 Output Total 500 / 500 100 / 600 Balance 1100 / 1450 290 / 290 320 / 610 Weight last 48 hrs Weight 140 lb Physical Exam Narrative: EXAM NARRATIVE: GENERAL: The patient is alert and oriented times three. Not in any acute distress. HEENT: No significant pallor, icterus or lymphadenopathy. The pupils are reactant to light. Oral cavity: There are no mucous membrane lesions. Funduscopic examination: The disk margins appear to be sharp with no exudates or hemorrhages. NECK: Trachea appears to be central. No masses noted. No JVD or thyromegaly appreciated. No carotid bruit. RESPIRATORY: Chest is symmetrical. No intercostals muscle retraction or any accessory muscle activation. There is no chest wall tenderness. Breath sounds are heard bilaterally. Few fine rales bilaterally at the bases. BREASTS: Deferred. HEART: The PMI is in the 5th left intercostals space just inside the m idclavicular line. No palpable precordial events. S1 and S2 are normal. No S3 or S4 heard. No pericardial rub or any click heard. Short systolic murmur the left sternal border. No diastolic murmurs. ABDOMEN: Moderate tenderness in the right subcostal and epigastric regions. Hepatomegaly present. RECTAL: Deferred. LYMPHATIC: No lymphadenopathy noted in the neck or groin. EXTREMITIES: No edema or cyanosis. No clubbing. The pulses are symmetrical bilaterally. The radial, femoral, dorsalis pedis and the posterior tibial pulses are palpated and found to be in good volume and amplitude. MUSCULOSKELETAL: No acute joint deformities or swelling SKIN: Healed surgical NEUROPSYCHIATRIC: The patient is alert and oriented x3. Appears to be in a good mood. The higher functions are grossly within normal limits. No tremors or rigidity noted. Data Labs: Other Labs: Laboratory Last Values WBC 10.3 10^3/uL (4.0 -10.0) H 02/19/21 16: RBC 5.00 10^6/uL (4.1 -5.3) 02/19/21 16: Hgb 14.7 g/dL (11.7-1 6.6) 02/19/21 16: Hct 45.5 % (42.0-52.0 ) 02/19/21 16: MCV 91.0 fl (80-94) 02/19/21 16: MCH 29.4 pg (28.0-34. 0) 02/19/21 16: MCHC 32.3 g/dL (30.0-3 6.0) 02/19/21 16: RDW 14.1 % (12.1-15.1 ) 02/19/21 16: Plt Count 162 10^3/cmm (130 -400) 02/19/21 16: MPV 10.3 fL (7.4-10.4 ) 02/19/21 16: Neut % (Auto) 67.2 % 02/19/21 16: Lymph % (Auto) 23.1 % 02/19/21 16: [place] % (Auto) 7.3 % 02/19/21 16: Eos % (Auto) 1.6 % 02/19/21 16: Baso % (Auto) 0.5 % 02/19/21 16: Neut # (Auto) 6.93 10^3/uL (1.8 -7.7) 02/19/21 16: Lymph # (Auto) 2.4 10^3/uL (0.8- 4.8) 02/19/21 16: [place] # (Auto) 0.8 10^3/uL (0.2- 0.9) 02/19/21 16:23 Eos # (Auto) 0.2 10^3/uL (0.0- 0.8) 02/19/21 16:23 Baso # (Auto) 0.1 10^3/uL (0.0- 0.1) 02/19/21 16:23 Nucleated RBC % (a uto) 0 % 02/19/21 16: Nucleated RBCs # 0.0 /100WBC 02/19/21 16:23 Sodium 141 mmol/L (136-1 45) 02/19/21 16:23 Potassium 4.1 mmol/L (3.5-5 .1) 02/19/21 16:23 Chloride 107 mmol/L (98-10 7) 02/19/21 16:23 Carbon Dioxide 22 mmol/L (22-29) 02/19/21 16:23 Anion Gap 16.1 (5-19) 02/19/21 16:23 BUN 19 mg/dL (6-20) 02/19/21 16:23 Creatinine 1.0 mg/dL (0.7-1. 2) 02/19/21 16:23 GFR Calculation 76.7 mL/min (90-1 30) L 02/19/21 16:23 Glucose 115 mg/dL (65-115 ) 02/19/21 16:23 Calculated Osmolal ity 295 mOsm/kg (285- 295) 02/19/21 16:23 Lactic Acid 1.4 mmol/L (0.5-2 .2) 02/19/21 16:23 Calcium 8.6 mg/dL (8.5-10 .5) 02/19/21 16:23 Total Bilirubin 0.8 mg/dL (0.15-1 .2) 02/19/21 16:23 AST 23 U/L (0-40) 02/19/21 16:23 ALT 27 U/L (0-41) 02/19/21 16:23 Alkaline Phosphata se 132 IU/L (40-130) H 02/19/21 16:23 Creatine Kinase 38 U/L (39-308) L 02/19/21 16:23 Troponin T Baselin e 16 ng/L (0-15) H 02/19/21 16:23 Troponin T 120 Min gerard 17.03 ng/L (0-15) H 02/19/21 18:15 Delta Troponin T 1.03 ABS# (0-10) 02/19/21 18:15 Troponin T Hi Sens 6Hr 20.35 ng/L (0-15) H 02/19/21 21:58 Troponin T Hi Sens 6Hr Delta 4.35 ng/L (0-12) 02/19/21 21:58 NT-Pro-B Natriuret Pep 8619 pg/mL (0-125 ) H 02/19/21 18:15 Total Protein 6.0 g/dL (6.6-8.7 ) L 02/19/21 16:23 Albumin 3.6 g/dL (3.5-5.2 ) 02/19/21 16:23 Globulin 2.4 g/dL (1.3-4.6 ) 02/19/21 16:23 Lipase 18 U/L (13-60) 02/19/21 16:23 Urine Color Yellow (Yellow) 02/19/21 16:50 Urine Appearance Clear (CLEAR) 02/19/21 16:50 Urine pH 5 (5-7) 02/19/21 16:50 Ur Specific Gravit y 1.020 (1.005-1.0 30) 02/19/21 16:50 Urine Protein Neg (Negative) 02/19/21 16:50 Urine Glucose (UA) Norm (Normal) 02/19/21 16:50 Urine Ketones Negative (Negati ve) 02/19/21 16:50 Urine Blood 2+ (Negative) H 02/19/21 16:50 Urine Nitrate Negative (Negati ve) 02/19/21 16:50 Urine Bilirubin Neg (Negative) 02/19/21 16:50 Urine Urobilinogen 1 mg/dL (Negative ) H 02/19/21 16:50 Ur Leukocyte Zofia ase Negative (Negati ve) 02/19/21 16:50 Urine RBC 0-4 /hpf (0-2) H 02/19/21 16:50 Urine WBC None /hpf (0-5) 02/19/21 16:50 Ur Squamous Epith Cells None /hpf (0-5) 02/19/21 16:50 Amorphous Sediment Not Reportable 02/19/21 16:50 Urine Bacteria Trace /hpf (NONE) 02/19/21 16:50 Urine Mucus 1+ /hpf 02/19/21 16:50 Hepatitis A IgM Ab Non-reactive (No nreactive) 02/19/21 16:23 Hep Bs Antigen Non-reactive (No nreactive) 02/19/21 16:23 Hep Bs Antibody 3.5 (11.5-1000) L 02/19/21 16:23 Hep B Core Total A b Non-reactive (No nreactive) 02/19/21 16:23 Hepatitis C Antibo dy Non-reactive (No nreactive) 02/19/21 16:23 Micro: Micro: Microbiology 02/19/21 18:15 Blood Culture - Pr eliminary Blood NEGATIVE TO TYRA E 02/19/21 20:30 Blood Culture - Pr eliminary Blood SPECIMEN [facility] Imaging^: Echo: My impression: Severe diffuse hypokinesis of the left ventricle with ejection fraction of around 20%. Mildly increased left ventricular cavity size. Mild biatrial enlargement. Thickened mitral valve. Mild mitral valve regurgitation. Thickened aortic valve. Mild tricuspid valve regurgitation. Estimated pulmonary artery peak systolic pressure of 40 mmHg There are no intracardiac masses. There is no pericardial effusion. No previous study is available for comparison. CT Abd/Pel: Radiologist's impression: 1. Bilateral renal striated enhancement. Differential includes pyelonephritis, renal infarction, and left common causes such is vasculitis, multiple myeloma, rhabdomyolysis. 2. Cardiomegaly with bilateral pleural effusions consistent with congestive heart failure. 3. There is periportal edema which can be seen with volume overload, hepatitis, or cholangitis. 4. There is gallbladder wall thickening. This can be seen with cholecystitis or other systemic causes such is congestive heart failure. 5. Colonic constipation is present. EKG^: EKG 1: My Interpretation: Atrial fibrillation with a controlled ventricular response rate of 89 bpm. Diffuse nonspecific T wave changes. Nonspecific IVCD A&P Assessment and plan (1) Acute on chronic systolic heart failure: Patient has some features of biventricular failure. The epigastric pain could be related to hepatic congestion. At this point, it would be appropriate to start him on IV diuretics. The dose need to be carefully adjusted. I also will try to get the medical records from [place]. His intake output will be closely monitored. Status: Acute (2) Right upper quadrant pain: The upper quadrant pain could be related to hepatic congestion. Patient has RV dysfunction by echocardiogram. We will watch the clinical response to IV diuretics. Status: Acute (3) Atrial fibrillation: Patient may be continued on the subcu Lovenox. Status: Acute Qualifiers: Atrial fibrillation type: unspecified Qualified Code(s): I48.91 - Unspecified atrial fibrillation (4) Cardiomyopathy: The etiology of the LV dysfunction is not known at this point. After reviewing the medical records from [facility], the need for further cardiac work-up will be decided. Status: Acute Qualifiers: Cardiomyopathy type: unspecified Qualified Code(s): I42.9 - Cardiomyopathy, unspecified Additional A&P Information Based on the clinical response and the results of the above, further recommendations will be made. Thank you for the opportunity to eval this patient and make these recommendations Consult Attestations Medical Necessity Statement: Patient requires continued hospital stay for sigifredo se monitoring and further management Coding Level of Care Code Acute Boxing Promoter for Chg Fwd History Detailed Exam Detailed Medical Decision Making High Complexity Diagnoses Acute on chronic systolic heart failure I50.23 Right upper quadrant pain R10.11 Atrial fibrillation I48.91 Atrial fibrillation type: unspecified Cardiomyopathy I42.9 Cardiomyopathy type: unspecified
[2021-02-20] MEDS: enoxaparin 60 mg/0.6 mL Syringe SUBCUT (20:09)
[2021-02-20] MEDS: metoprolol tartrate 25 mg Tablet PO (20:10)
[2021-02-21] VITALS (11 sets, daily range): BP systolic 86–111; BP diastolic 63–89; PULSE 79–100; RESP 14–23; TEMP 36.5–36.8; O2SAT 95–99
[2021-02-21] MEDS: ondansetron 2 mg/ML SDV 2 mL 4 MG IVP ×3 (01:06→21:15)
[2021-02-21] MEDS: piperacillin-tazobactam 3.375 GM in sodium chloride 0.9% (plus) 50 ML IV ×3 (03:19→21:07)
[2021-02-21 05:12] LABS: Basophils # 0.1 10^3/uL (0.0-0.1); Basophils % 0.8 %; Eosinophils # 0.2 10^3/uL (0.0-0.8); Eosinophils % 2.2 %; Hemoglobin 14.7 g/dL (11.7-16.6); Lymphocytes # 2.2 10^3/uL (0.8-4.8); Lymphocytes % 30.9 %; Mean Corpuscular HGB Conc 31.3 g/dL (30.0-36.0); Mean Corpuscular Volume 92.7 fl (80-94); Mean Platelet Volume 10.6 fL (7.4-10.4); Monocytes # 0.6 10^3/uL (0.2-0.9); Monocytes % 8.7 %; Neutrophils # 4.13 10^3/uL (1.8-7.7); Neutrophils % 57.1 %; Nucleated Red Blood Cells % 0 %; Platelet Count 183 10^3/cmm (130-400); Red Blood Count 5.07 10^6/uL (4.1-5.3); Red Cell Distribution Width 14.1 % (12.1-15.1); White Blood Count 7.2 10^3/uL (4.0-10.0)
[2021-02-21 05:55] LABS: Alanine Aminotransferase 33 U/L (0-41); Albumin Level 3.5 g/dL (3.5-5.2); Alkaline Phosphatase 129 IU/L (40-130); Anion Gap 15.5 (5-19); Aspartate Amino Transferase 29 U/L (0-40); Blood Urea Nitrogen 24 mg/dL (6-20); Calcium 8.6 mg/dL (8.5-10.5); Carbon Dioxide 26 mmol/L (22-29); Chloride 102 mmol/L (98-107); Globulin 2.7 g/dL (1.3-4.6); Glomerular Filtration Rate 44.6 mL/min (90-130); Glucose 90 mg/dL (65-115); Osmolality Calculated 292 mOsm/kg (285-295); Potassium 4.5 mmol/L (3.5-5.1); Sodium 139 mmol/L (136-145); Thyroid Stimulating Hormone 0.01 uIU/mL (0.27-4.20); Total Bilirubin 0.6 mg/dL (0.15-1.2); Total Protein 6.2 g/dL (6.6-8.7)
[2021-02-21] MEDS: enoxaparin 60 mg/0.6 mL Syringe SUBCUT ×2 (05:58→18:20)
--- NOTE | 2021-02-21 07:41 | PM.PN ---
Subjective Subjective: Interval history: Seen this morning. Patient returned from HIDA scan. Report is pending. Discussed with over the phone. Patient states he is feeling the same as yesterday. He did have more right upper quadrant pain. He is unsure why it is happening. Denies any shortness of breath. He is currently being treated with Zosyn. Patient has no other complaints and is looking forward to seeing floorhand today. All his records from [facility] were reviewed and I have written them up in a miscellaneous note on 02/20 2021. Patient was seen by cardiology yesterday and started on Lasix 40 every 6 hours. Vitals/I&O/Wt Last Vital Signs Temp 98 F 02/21/21 03:14 Pulse 100 02/21/21 01:26 Resp 19 H 02/21/21 03:14 BP 86/63 02/21/21 03:14 Pulse Ox 95 02/21/21 03:14 02/20/21 02/21/21 02/21/21 22:59 06:59 14:59 Intake Total 420 / 1210 50 / 1260 Output Total 300 / 800 Balance 120 / 410 50 / 460 Weight last 48 hrs Weight 63.503 kg Physical Exam Narrative: EXAM NARRATIVE: General: Alert oriented x3, patient seen sitting up in bed appearing comfortable. Appears cachectic and frail. HEENT: Normocephalic, atraumatic, EOMI, breathing room air Cardio: Regular rate rhythm, normal S1-S2, no murmurs rubs gallops, Respiratory: Good bilateral air entry, very mild crackles heard bilaterally, no wheezes no rhonchi appreciated GI: Abdomen soft, less tender to palpation in the right upper quadrant compared to previous days exam.. Nondistended, bowel sounds + Behavior: Appropriate and cooperative Extremities: Trace lower extremity edema present bilaterally. no cyanosis Data : 02/21/21 04:26 02/21/21 04:26 Micro: Microbiology 02/19/21 20:30 Blood Culture - Preliminary Blood NEGATIVE TO DATE 02/19/21 18:15 Blood Culture - Preliminary Blood NEGATIVE TO DATE A&P Assessment and plan (1) Acute acalculous cholecystitis: Status: Acute (2) Atrial fibrillation: Status: Acute Qualifiers: Atrial fibrillation type: unspecified Qualified Code(s): I48.91 - Unspecified atrial fibrillation (3) Chronic anticoagulation: Status: Acute (4) Pleural effusion: Status: Acute Additional A&P Information #Acute on chronic systolic congestive heart failure, EF 15 to 20% #Atrial fibrillation #Hx of DVT popliteal artery s/p embolectomy August 2020 #Hyperthyroidism #Bilateral pleural effusions most likely secondary to heart failure #Acalculous cholecystitis - Presenting today with right upper quadrant pain, poor p.o. intake, abdominal bloating. CT and ultrasound concerning for acalculous cholecystitis. Seen by general surgery. HIDA scan was done this morning. Report is pending. I discussed with Dr. Dejesus over the phone. Patient needs to be optimized from heart failure standpoint and then surgery can be considered. No emergent surgery needed for cholecystectomy at this point. It is possible that his right upper quadrant pain is related to his heart failure. I will treat patient with Zosyn while inpatient. And at discharge we will switch him to Augmentin to complete 7 days empirically. - Currently rate controlled with heart rate between 90-1 10 Did review records from [facility]. Patient was diagnosed with systolic heart failure and placed on medications. He does not take any meds because he claims that they were killing him. He was only taking the Xarelto and the Lipitor. Patient refuses to take other medications. He also stopped taking his methimazole for hyperthyroidism. TSH returned at 0.01. Free T4 has been ordered. I will go ahead and restart his methimazole at this point. Methimazole 5 mg daily. Also on Xarelto 15 mg p.o. daily for history of DVT and A. fib. Was covering patient with full dose Lovenox while holding Eliquis for potential surgery. It seems that surgery will not be done as an inpatient. At this point I will switch him back to his Eliquis. We will continue patient on metoprolol 12.5 twice daily. Atrial fibrillation can be due to his hyperthyroidism as well. So far he is rate has been controlled and blood pressure has been stable while inpatient. Echocardiogram did show EF of 15 to 20%. Most likely nonischemic cardiomyopathy at this point. Cardiology is on board. Will await further recommendations. - Elevated BNP on admission. We will continue to diurese patient at this point. Will await cardiology recs. Patient also states that he would like to set him self up with the primary care physician and a floorhand here in town in [place] as he is not interested to go back to [facility]. Attestations Medical Necessity Statement*: Expect > 24 hours hospital stay Time Spent in Patient Care: 16 - 35 minutes Coding Level of Care Code Acute Body Shop Manager for Aicha Fwd Diagnoses Acute acalculous cholecystitis K81.0 Atrial fibrillation I48.91 Atrial fibrillation type: unspecified Chronic anticoagulation Z79.01 Pleural effusion J90
--- NOTE | 2021-02-21 07:55 | NM_ITS ---
WS: [id number] NUCLEAR MEDICINE HIDA SCAN WITH GALLBLADDER EJECTION FRACTION HISTORY: Concern for acalculous cholecystitis COMPARISON: 02/19/2021 TECHNIQUE: The patient was intravenously injected with 7.8 mCi of TC99m Mebrofenin. Immediate imaging over the right upper quadrant was followed by 5 minute image and additional images for a total of 60 minutes. Normal uptake of radiotracer throughout the liver. Activity identified in the gallbladder at 20 minutes and well distended by 60 minutes. Variable uptak e at the gallbladder fossa. Activity in the proximal small bowel was seen by 40 minutes. Incompletely washout of the radiotracer from the liver by 60 minutes. The patient then drank 8 ounces of Ensure Plus. Ejection fraction at 60 minutes was undefined. Contin ued progressive filling of the gallbladder at greater than 75 minutes. Post fatty meal symptoms: None. NM/NM hepatobiliary w phar* [id number] IMPRESSION: 1. Incomplete washout of radiotracer from the liver. This raises the possibili ty of hepatitis. 2. Abnormal gallbladder ejection fraction. This also raises the possibility of chronic cholecystitis. Gallbladder wall is thickened which can be seen with ch ronic cholecystitis or hepatitis.
--- NOTE | 2021-02-21 09:34 | PC.CHAP ---
Pastoral Care Encounter/Spiritual Assessment Type of Contact [] Declined nascar pit crew person visit [] Patient/Family/Request visit [] Outpatient visit [] Follow-up visit [] Physician referral [] Code/Alert [x] Routine visit [] Staff referral [] Actively dying [] Patient sleeping [] Family support [] [] Out of room [] Palliative care [] [] Receiving care in room [] Pre-surgical visit [] Trauma [] Long length of stay [] ICU visit [] Other: Relational/Emotional Strength [] Patient feels connected with others/family/visitors/staff [] Distress [] Loneliness/isolation [] Abandonment Spirituality of Patient [] Person of Jacquelyn [] Attends Evangelical of their Jacquelyn [] Believes in Prayer [] Reads Bible or Mandaen materials [] There are Spiritual issues to be addressed Machine Sign Writer Interventions [x] Prayer [x] Active listening [x] Non-anxious presence [x] Spiritual/emotional support [] Crisis/trauma care [] Spiritual counseling [] Bereavement support [] Provided bereavement packet [] Provided Bible/devotional materials [] Provided toy/stuffed animal, coloring book to patient or family member [] Provided Communion [] Anointing/[place] [] Salvation [x] Completed spiritual assessment [] Other: Impact on Illness or Injury [] Angry [] Fearful [] Anxious [] Often cries [] Exhaustion [] Unable to work [] Unable to attend episcopal [] Unable to walk/stand [] Unable to read [] Unable to drive [] Unable to eat/drink [] Unable to sleep [] Unable to be with family [] Patient intubated [] Other: Summary pain still present.. no details of cause... Time spent with patient 5 min
[2021-02-21] MEDS: HYDROmorphone 1 mg/mL INJ 1 mL IVP (09:44)
[2021-02-21] MEDS: FUROsemide 10 mg/mL SDV 4mL 40 MG IVP ×3 (09:45→21:08)
[2021-02-21] MEDS: potassium chloride ER 20 mEq Tablet PO ×3 (09:49→21:15)
[2021-02-21] MEDS: metoprolol tartrate 25 mg Tablet 12.5 MG PO (10:46)
[2021-02-21] MEDS: famotidine 20 mg/2 mL INJ IVP (12:04)
[2021-02-21 12:56] LABS: COMPLEMENT COMPONENT C3C 110 mg/dL (82-185); COMPLEMENT COMPONENT C4C 20 mg/dL (15-53)
--- NOTE | 2021-02-21 13:22 | PM.PN ---
Subjective Subjective: Interval history: Patient had the HIDA scan today. Results are as mentioned below. Patient continues to have the upper abdominal pain. No fever or chills. No hematochezia or hematuria. Medications: Reviewed: Yes Medication Review Details: Current Medications Acetaminophen (Acetaminophen 325 Mg Tablet) 650 mg PO Q6H PRN PRN Reason: Mild/Mod Pain Or Temp >/= 101 Enoxaparin Sodium (Enoxaparin 60 Mg/0.6 Ml Syringe) 60 mg SUBCUT Q12H [facility] Last Admin: 02/21/21 05:58 Dose: 60 mg Documented by: Famotidine (Famotidine 20 Mg/2 Ml Inj) 20 mg IVP Q12H ANGELINA Last Admin: 02/21/21 12:04 Dose: 20 mg Documented by: Furosemide (Furosemide 10 Mg/Ml Sdv 4ml) 40 mg IVP Q6H [facility] Last Admin: 02/21/21 09:45 Dose: 40 mg Documented by: Hydromorphone HCl (Hydromorphone 1 Mg/Ml Inj 1 Ml) 1 mg IVP Q6H PRN PRN Reason: pain Last Admin: 02/21/21 09:44 Dose: 1 mg Documented by: Piperacillin Sod/Tazobactam (Sod 3.375 gm/ Sodium Chloride) 50 mls @ 12.5 mls/hr IV Q8H [facility]; Protocol Last Admin: 02/21/21 12:01 Dose: 12.5 mls/hr Documented by: Ketorolac Tromethamine (Ketorolac 30 Mg/Ml Inj) 15 mg IVP Q8H PRN PRN Reason: MODERATE PAIN Stop: 02/25/21 00:59 Last Admin: 02/20/21 22:33 Dose: 15 mg Documented by: Metoprolol Tartrate (Metoprolol Tartrate 25 Mg Tablet) 12.5 mg PO BID@0900,2100 [facility] Last Admin: 02/21/21 10:46 Dose: 12.5 mg Documented by: Naloxone HCl (Naloxone 0.4 Mg/Ml Sdv) 0.1 mg IVP Q2M PRN PRN Reason: OPIATERV Ondansetron HCl (Ondansetron 2 Mg/Ml Sdv 2 Ml) 4 mg IVP Q4H PRN PRN Reason: NAUSEA AND VOMITING Last Admin: 02/21/21 10:46 Dose: 4 mg Documented by: Ondansetron HCl (Ondansetron 2 Mg/Ml Sdv 2 Ml) 4 mg IVP Q8H PRN PRN Reason: vomiting, or N/V if npo Potassium Chloride (Potassium Chloride Er 20 Meq Tablet) 20 meq PO TID ANGELINA Last Admin: 02/21/21 09:49 Dose: 20 meq Documented by: Vitals/I&O/Wt Last Vital Signs Temp 97.7 F 02/21/21 12:03 Pulse 91 02/21/21 12:03 Resp 18 02/21/21 12:03 BP 95/78 02/21/21 12:03 Pulse Ox 97 02/21/21 12:03 02/20/21 02/21/21 02/21/21 22:59 06:59 14:59 Intake Total 420 / 1210 50 / 1260 50 / 50 Output Total 300 / 800 Balance 120 / 410 50 / 460 50 / 50 Weight last 48 hrs Weight 140 lb Physical Exam Narrative: EXAM NARRATIVE: GENERAL: The patient is alert and oriented times three. Not in any acute distress. HEENT: No significant pallor, icterus or lymphadenopathy. The pupils are symmetrical oral cavity: There are no mucous membrane lesions. NECK: Trachea appears to be central. No masses noted. No JVD or thyromegaly appreciated. No carotid bruit. RESPIRATORY: Chest is symmetrical. No intercostals muscle retraction or any accessory muscle activation. There is no chest wall tenderness. Breath sounds are heard bilaterally. Few fine rales bilaterally at the bases. BREASTS: Deferred. HEART: The PMI is in the 5th left intercostals space just inside the midclavicular line. No palpable precordial events. S1 and S2 are normal. No S3 or S4 heard. No pericardial rub or any click heard. Short systolic murmur the left sternal border. No diastolic murmurs. ABDOMEN: Moderate tenderness in the right subcostal and epigastric regions. Hepatomegaly present. RECTAL: Deferred. LYMPHATIC: No lymphadenopathy noted in the neck or groin. EXTREMITIES: No edema or cyanosis. No clubbing. The pulses are symmetrical bilaterally. The radial, femoral, dorsalis pedis and the posterior tibial pulses are palpated and found to be in good volume and amplitude. MUSCULOSKELETAL: No acute joint deformities or swelling SKIN: Healed surgical NEUROPSYCHIATRIC: The patient is alert and oriented x3. Appears to be very anxious. No focal motor deficits. Data : 02/21/21 04:26 02/21/21 04:26 Micro: Microbiology 02/19/21 20:30 Blood Culture - Preliminary Blood NEGATIVE TO DATE 02/19/21 18:15 Blood Culture - Preliminary Blood NEGATIVE TO DATE HIDA scan: Radiologist's impression: . Incomplete washout of radiotracer from the liver. This raises the possibility of hepatitis. 2. Abnormal gallbladder ejection fraction. This also raises the possibility of chronic cholecystitis. Gallbladder wall is thickened which can be seen with chronic cholecystitis or hepatitis. A&P Assessment and plan (1) Acute on chronic systolic heart failure: Patient was given higher doses of Lasix. The urine output does not seems to be that great. He does not appear to be fluid overload. Status: Acute (2) Right upper quadrant pain: Since the liver and the spleen it does not appear to be enlarged based on the CT scan and also symptoms there is no significant change in his pain with the diuresis, the chances of venous congestion causing the symptoms may be low. I reviewed his cardiac colorization data from [email or web address]. The left and descending artery and circumflex artery where without any disease. Right coronary angiogram was not performed because of patient's noncooperation. This may need to be further evaluated. Status: Acute (3) Atrial fibrillation: Patient may be continued on the subcu Lovenox. Status: Acute Qualifiers: Atrial fibrillation type: unspecified Qualified Code(s): I48.91 - Unspecified atrial fibrillation (4) Cardiomyopathy: Most likely the patient has nonischemic cardiomyopathy. He was found to have no significant obstructive coronary disease in the left coronary system. Status: Acute Qualifiers: Cardiomyopathy type: unspecified Qualified Code(s): I42.9 - Cardiomyopathy, unspecified Additional A&P Information We may go ahead and do a myocardial perfusion imaging to evaluate for any ischemia in the distribution of the right coronary artery. This was discussed the patient detail which is understood well. We are going to have the perfusion scan tomorrow. Based on the results, further recommendations will be made. The current cardiac status based on the investigations so far were discussed with the patient and his in detail which is understood well. Attestations Medical Necessity Statement*: Patient requires continued hospital stay for close monitoring and further management Coding Level of Care Code Acute Warehouseman for Chg Fwd History Detailed Exam Detailed Medical Decision Making High Complexity Diagnoses Acute on chronic systolic heart failure I50.23 Right upper quadrant pain R10.11 Atrial fibrillation I48.91 Atrial fibrillation type: unspecified Cardiomyopathy I42.9 Cardiomyopathy type: unspecified
--- NOTE | 2021-02-21 14:10 | PC.NURSE ---
Spoke with about IV lasix and order received to give lasix if SBP is greater than 90.
[2021-02-21 14:13] LABS: Free T4 Free Thyroxine 1.68 ng/dL (0.82-1.77)
--- NOTE | 2021-02-21 14:49 | P.PN_ITS ---
Subjective Subjective: Interval history: Patient overall feels okay. Medications: Reviewed: Yes Vitals/I&O/Wt Last Vital Signs Temp 97.7 F 02/21/21 12:03 Pulse 79 02/21/21 14:18 Resp 18 02/21/21 12:03 BP 90/71 02/21/21 14:18 Pulse Ox 97 02/21/21 12:03 02/20/21 02/21/21 02/21/21 22:59 06:59 14:59 Intake Total 420 / 1210 50 / 1260 50 / 50 Output Total 300 / 800 Balance 120 / 410 50 / 460 50 / 50 Weight last 48 hrs Weight 140 lb Physical Exam Narrative: EXAM NARRATIVE: Patient is conscious alert oriented X3 BMI 20 Head and neck examination PERRLA no masses no cervical lymphadenopathy no jau ndice Abdomen ruq tenderness,. nondistended soft no organomegaly guarding or rigidity/no signs of peritonitis Data : 02/21/21 04:26 02/21/21 04:26 Micro: Microbiology 02/19/21 20:30 Blood Culture - Preliminary Blood NEGATIVE TO DATE 02/19/21 18:15 Blood Culture - Preliminary Blood NEGATIVE TO DATE A&P Assessment and plan (1) Right upper quadrant pain: Based on the findings of the echocardiogram that shows 20% of ejection fraction. The severe diffuse hypokinesis of the left ventricle. And giving the fact that the HIDA scan did show concern for hepatitis which I do believe likely due to chronic hepatic congestion secondary to his heart failure. I do not believe at this time surgery would be appropriate given the high risk of the patient I recommend conservative management the form of antibiotics broad-spectrum and low-fat full liquid diet Patient would likely benefit from medical optimization and [facility] Services input down the road for potential consideration of surgical intervention as an outpatient. The plan of care has been discussed with the patient and he verbalized understanding and he agrees on it Thank you for consulting general surgery to participate taking care Status: Acute Attestations Medical Necessity Statement*: Per admitting service Time Spent in Patient Care: (>than 50% of time spent in counselling and/or direct pt care on unit) . Coding Level of Care Code Acute Instrument Designer for [facility] Fwd Diagnoses Right upper quadrant pain R10.11
[2021-02-21 16:18] LABS: THYROID PEROXIDASE ANTIBODIES 91 IU/mL (<9)
[2021-02-21] MEDS: lidocaine 2% viscous 15 ML, aluminum-mag hydrox-simethicon 30 ML, sucralfate oral liq 1 GM PO (18:20)
[2021-02-22] VITALS (10 sets, daily range): BP systolic 106–120; BP diastolic 69–87; PULSE 65–101; RESP 13–36; TEMP 36.4–36.8; O2SAT 95–98
[2021-02-22] MEDS: famotidine 20 mg/2 mL INJ IVP (00:28)
[2021-02-22] MEDS: FUROsemide 10 mg/mL SDV 4mL 40 MG IVP ×2 (03:09→17:34)
[2021-02-22] MEDS: piperacillin-tazobactam 3.375 GM in sodium chloride 0.9% (plus) 50 ML IV ×3 (04:16→20:55)
[2021-02-22 05:28] LABS: Anion Gap 15.4 (5-19); Blood Urea Nitrogen 25 mg/dL (6-20); Calcium 8.7 mg/dL (8.5-10.5); Carbon Dioxide 30 mmol/L (22-29); Chloride 101 mmol/L (98-107); Glomerular Filtration Rate 44.6 mL/min (90-130); Glucose 91 mg/dL (65-115); Magnesium 1.9 mg/dL (1.7-2.3); Osmolality Calculated 298 mOsm/kg (285-295); Potassium 4.4 mmol/L (3.5-5.1); Sodium 142 mmol/L (136-145)
[2021-02-22] MEDS: enoxaparin 60 mg/0.6 mL Syringe SUBCUT (06:25)
[2021-02-22] MEDS: potassium chloride ER 20 mEq Tablet PO ×3 (08:18→20:56)
[2021-02-22] MEDS: methIMAzole 5 MG Tablet PO (08:18)
--- NOTE | 2021-02-22 08:18 | P.PN_ITS ---
Subjective Subjective: Interval history: Seen and examined this morning. He is diuresing well. Still has very mild crackles at the bases. Abdominal pain is improved at this point. His kidney function has not improved however. Creatinine is still 1.6. His Lasix has been changed to twice daily from 3 times daily. Urine output was 800 cc. Was unable to have the stress test today. He will be having it tomorrow as per Dr. Salas. We will start patient on Entresto today. Vitals/I&O/Wt Last Vital Signs Temp 97.5 F L 02/22/21 08:12 Pulse 94 02/22/21 08:12 Resp 22 H 02/22/21 08:12 BP 106/79 02/22/21 08:12 Pulse Ox 98 02/22/21 02:37 02/21/21 02/22/21 02/22/21 22:59 06:59 14:59 Intake Total 50 / 100 170 / 270 Output Total 250 / 250 800 / 1050 Balance -200 / -150 -630 / -780 Physical Exam Narrative: EXAM NARRATIVE: General: Alert oriented x3, patient seen sitting up in bed appearing comfortable. Appears cachectic and frail. HEENT: Normocephalic, atraumatic, EOMI, breathing room air Cardio: Regular rate rhythm, normal S1-S2, no murmurs rubs gallops, Respiratory: Good bilateral air entry, very mild crackles heard bilaterally at the bases. Definitely improvement compared to admission. GI: Abdomen soft, abdomen nontender today.. Nondistended, bowel sounds + Behavior: Appropriate and cooperative Extremities: No lower extremity edema appreciated today. no cyanosis Data : 02/21/21 04:26 02/22/21 04:31 A&P Assessment and plan (1) Acute acalculous cholecystitis: Status: Acute (2) Atrial fibrillation: Status: Acute Qualifiers: Atrial fibrillation type: unspecified Qualified Code(s): I48.91 - Unspecified atrial fibrillation (3) Chronic anticoagulation: Status: Acute (4) Pleural effusion: Status: Acute Additional A&P Information #Acute on chronic systolic congestive heart failure, EF 15 to 20%, newly reduced EF. Previously had EF of 30 to 35%. #Atrial fibrillation rate controlled. #Hx of DVT popliteal artery s/p embolectomy August 2020 #Hyperthyroidism #Bilateral pleural effusions most likely secondary to heart failure #Chronic cholecystitis #Acute kidney injury Baseline creatinine 0.8. - Presenting today with right upper quadrant pain, poor p.o. intake, abdominal bloating. CT and ultrasound concerning for acalculous cholecystitis. Seen by general surgery. HIDA scan was performed. Report showing possibility of hepatitis. Abnormal gallbladder ejection fraction. Recent possibility of chronic cholecystitis. I discussed with Dr. Dejesus over the phone. Patient needs to be optimized from heart failure standpoint and then surgery can be considered. No emergent surgery needed for cholecystectomy at this point. It is possible that his right upper quadrant pain is related to his heart failure. I will treat patient with Zosyn while inpatient. And at discharge we will switch him to Augmentin to complete 7 days empirically. I have ordered hepatitis panel for today. - Currently rate controlled with heart rate between 90-1 10 Did review records from [facility]. Patient was diagnosed with systolic heart failure and placed on medications. He does not take any meds because he claims that they were killing him. He was only taking the Xarelto and the Lipitor. Patient refuses to take other medications. He also stopped taking his methimazole for hyperthyroidism. TSH returned at 0.01. Free T4 has been ordered. Methimazole has been restarted. Also on Xarelto 15 mg p.o. daily for history of DVT and A. fib. Will hold metoprolol for stress test tomorrow. Atrial fibrillation can be due to his hyperthyroidism as well. So far he is rate has been controlled and blood pressure has been stable while inpatient. Echocardiogram did show EF of 15 to 20%. BNP elevated on admission. Most likely nonischemic cardiomyopathy at this point. Cardiology is on board. We will switch Lasix to 80 twice daily instead of 3 times daily. FELA not improving. Creatinine still 1.6 same as yesterday. We have cut down on Lasix today. We will stop ketorolac as well. We will start Entresto today. Patient will also need a LifeVest at discharge. Unclear if he is interested at this point I will talk to him about it. Patient also states that he would like to set him self up with the primary care physician and a export freight manager here in town in [place] as he is not interested to go back to [facility]. Attestations Medical Necessity Statement*: Potential discharge in next 24 to 48 hours depending on renal function, diuresis, results of stress test. Time Spent in Patient Care: 16 - 35 minutes Coding Level of Care Code Acute Credentials Specialist for Rene Uriostegui Diagnoses Acute acalculous cholecystitis K81.0 Atrial fibrillation I48.91 Atrial fibrillation type: unspecified Chronic anticoagulation Z79.01 Pleural effusion J90
[2021-02-22 08:50] LABS: Alanine Aminotransferase 32 U/L (0-41); Albumin Level 3.5 g/dL (3.5-5.2); Alkaline Phosphatase 137 IU/L (40-130); Aspartate Amino Transferase 28 U/L (0-40); Globulin 2.8 g/dL (1.3-4.6); Total Bilirubin 0.6 mg/dL (0.15-1.2); Total Protein 6.3 g/dL (6.6-8.7)
--- NOTE | 2021-02-22 10:25 | PC.NURSE ---
physician notification Discuss to doctor regarding pt's IVP lasix 40 mg q6 HR and creatinine today, BP and UO-800 cc. Received order to change schedule to q12hrs starting this afternoon.
--- NOTE | 2021-02-22 13:48 | PM.PN ---
Subjective Subjective: Interval history: Patient is feeling much better. Significant improvement in the epigastric pain. He responded to the IV Lasix appropriately. Denies any chest pain or chest tightness. Medications: Reviewed: Yes Medication Review Details: Current Medications Acetaminophen (Acetaminophen 325 Mg Tablet) 650 mg PO Q6H PRN PRN Reason: Mild/Mod Pain Or Temp >/= 101 Aminophylline (Aminophylline 25 Mg/Ml Sdv 10 Ml) 25 mg IVP Q2M PRN PRN Reason: see dose instructions Stop: 02/22/21 14:06 Enoxaparin Sodium (Enoxaparin 60 Mg/0.6 Ml Syringe) 60 mg SUBCUT Q12H [facility] Last Admin: 02/22/21 06:25 Dose: 60 mg Documented by: Famotidine (Famotidine 20 Mg Tablet) 20 mg PO BID ANGELINA Furosemide (Furosemide 10 Mg/Ml Sdv 4ml) 40 mg IVP Q12H ANGELINA Hydromorphone HCl (Hydromorphone 1 Mg/Ml Inj 1 Ml) 1 mg IVP Q6H PRN PRN Reason: pain Last Admin: 02/21/21 09:44 Dose: 1 mg Documented by: Piperacillin Sod/Tazobactam (Sod 3.375 gm/ Sodium Chloride) 50 mls @ 12.5 mls/hr IV Q8H [facility]; Protocol Last Infusion: 02/22/21 08:26 Dose: Infused Documented by: Ketorolac Tromethamine (Ketorolac 30 Mg/Ml Inj) 15 mg IVP Q8H PRN PRN Reason: MODERATE PAIN Stop: 02/25/21 00:59 Last Admin: 02/20/21 22:33 Dose: 15 mg Documented by: Methimazole (Methimazole 5 Mg Tablet) 5 mg PO DAILY [facility] Last Admin: 02/22/21 08:18 Dose: 5 mg Documented by: Metoprolol Tartrate (Metoprolol Tartrate 25 Mg Tablet) 12.5 mg PO BID@0900,2100 [facility] Last Admin: 02/21/21 10:46 Dose: 12.5 mg Documented by: Naloxone HCl (Naloxone 0.4 Mg/Ml Sdv) 0.1 mg IVP Q2M PRN PRN Reason: OPIATERV Nitroglycerin (Nitroglycerin 0.4 Mg Sublingual Tablet) 0.4 mg SUBLINGUAL Q5M PRN PRN Reason: CHEST PAIN Stop: 02/22/21 14:06 Ondansetron HCl (Ondansetron 2 Mg/Ml Sdv 2 Ml) 4 mg IVP Q4H PRN PRN Reason: NAUSEA AND VOMITING Last Admin: 02/21/21 21:15 Dose: 4 mg Documented by: Potassium Chloride (Potassium Chloride Er 20 Meq Tablet) 20 meq PO TID ANGELINA Last Admin: 02/22/21 08:18 Dose: 20 meq Documented by: Regadenoson (Regadenoson 0.4 Mg/5 Ml Syringe) 0.4 mg IVP ONCE PRN PRN Reason: Lexiscan Stress Test Vitals/I&O/Wt Last Vital Signs Temp 97.9 F 02/22/21 13:39 Pulse 85 02/22/21 13:39 Resp 13 02/22/21 13:39 BP 120/84 02/22/21 13:39 Pulse Ox 98 02/22/21 02:37 02/21/21 02/22/21 02/22/21 22:59 06:59 14:59 Intake Total 50 / 100 170 / 270 646 / 646 Output Total 250 / 250 800 / 1050 800 / 800 Balance -200 / -150 -630 / -780 -154 / -154 Physical Exam Narrative: EXAM NARRATIVE: GENERAL: The patient is alert and oriented times three. Not in any acute distress. HEENT: No significant pallor, icterus or lymphadenopathy. The pupils are symmetrical oral cavity: There are no mucous membrane lesions. NECK: Trachea appears to be central. No masses noted. No JVD or thyromegaly appreciated. No carotid bruit. RESPIRATORY: Chest is symmetrical. No intercostals muscle retraction or any accessory muscle activation. There is no chest wall tenderness. Breath sounds are heard bilaterally. Few fine rales bilaterally at the bases. BREASTS: Deferred. HEART: The PMI is in the 5th left intercostals space just inside the midclavicular line. No palpable precordial events. S1 and S2 are normal. No S3 or S4 heard. No pericardial rub or any click heard. Short systolic murmur the left sternal border. No diastolic murmurs. ABDOMEN: Moderate tenderness in the right subcostal and epigastric regions. Hepatomegaly present. RECTAL: Deferred. LYMPHATIC: No lymphadenopathy noted in the neck or groin. EXTREMITIES: No edema or cyanosis. No clubbing. The pulses are symmetrical bilaterally. The radial, femoral, dorsalis pedis and the posterior tibial pulses are palpated and found to be in good volume and amplitude. MUSCULOSKELETAL: No acute joint deformities or swelling SKIN: Healed surgical NEUROPSYCHIATRIC: The patient is alert and oriented x3. Appears to be very anxious. No focal motor deficits. Data : 02/23/21 04:57 02/23/21 04:57 Other Labs: Laboratory Last Values WBC 7.2 10^3/uL (4.0-10.0) 02/21/21 04:26 RBC 5.07 10^6/uL (4.1-5.3) 02/21/21 04:26 Hgb 14.7 g/dL (11.7-16.6) 02/21/21 04:26 Hct 47.0 % (42.0-52.0) 02/21/21 04:26 MCV 92.7 fl (80-94) 02/21/21 04:26 MCH 29.0 pg (28.0-34.0) 02/21/21 04:26 MCHC 31.3 g/dL (30.0-36.0) 02/21/21 04:26 RDW 14.1 % (12.1-15.1) 02/21/21 04:26 Plt Count 183 10^3/cmm (130-400) 02/21/21 04:26 MPV 10.6 fL (7.4-10.4) H 02/21/21 04:26 Neut % (Auto) 57.1 % 02/21/21 04:26 Lymph % (Auto) 30.9 % 02/21/21 04:26 [place] % (Auto) 8.7 % 02/21/21 04:26 Eos % (Auto) 2.2 % 02/21/21 04:26 Baso % (Auto) 0.8 % 02/21/21 04:26 Neut # (Auto) 4.13 10^3/uL (1.8-7.7) 02/21/21 04:26 Lymph # (Auto) 2.2 10^3/uL (0.8-4.8) 02/21/21 04:26 [place] # (Auto) 0.6 10^3/uL (0.2-0.9) 02/21/21 04:26 Eos # (Auto) 0.2 10^3/uL (0.0-0.8) 02/21/21 04:26 Baso # (Auto) 0.1 10^3/uL (0.0-0.1) 02/21/21 04:26 Nucleated RBC % (auto) 0 % 02/21/21 04:26 Nucleated RBCs # 0.0 /100WBC 02/21/21 04:26 Sodium 142 mmol/L (136-145) 02/22/21 04:31 Potassium 4.4 mmol/L (3.5-5.1) 02/22/21 04:31 Chloride 101 mmol/L (98-107) 02/22/21 04:31 Carbon Dioxide 30 mmol/L (22-29) H 02/22/21 04:31 Anion Gap 15.4 (5-19) 02/22/21 04:31 BUN 25 mg/dL (6-20) H 02/22/21 04:31 Creatinine 1.6 mg/dL (0.7-1.2) H 02/22/21 04:31 GFR Calculation 44.6 mL/min (90-130) L 02/22/21 04:31 Glucose 91 mg/dL (65-115) 02/22/21 04:31 Calculated Osmolality 298 mOsm/kg (285-295) H 02/22/21 04:31 Lactic Acid 1.4 mmol/L (0.5-2.2) 02/19/21 16:23 Calcium 8.7 mg/dL (8.5-10.5) 02/22/21 04:31 Magnesium 1.9 mg/dL (1.7-2.3) 02/22/21 04:31 Total Bilirubin 0.6 mg/dL (0.15-1.2) 02/22/21 04:31 Direct Bilirubin 0.30 mg/dL (0.00-0.30) 02/22/21 04:31 AST 28 U/L (0-40) 02/22/21 04:31 ALT 32 U/L (0-41) 02/22/21 04:31 Alkaline Phosphatase 137 IU/L (40-130) H 02/22/21 04:31 Creatine Kinase 38 U/L (39-308) L 02/19/21 16:23 Troponin T Baseline 16 ng/L (0-15) H 02/19/21 16:23 Troponin T 120 Minute 17.03 ng/L (0-15) H 02/19/21 18:15 Delta Troponin T 1.03 ABS# (0-10) 02/19/21 18:15 Troponin T Hi Sens 6Hr 20.35 ng/L (0-15) H 02/19/21 21:58 Troponin T Hi Sens 6Hr Delta 4.35 ng/L (0-12) 02/19/21 21:58 NT-Pro-B Natriuret Pep 8619 pg/mL (0-125) H 02/19/21 18:15 Total Protein 6.3 g/dL (6.6-8.7) L 02/22/21 04:31 Albumin 3.5 g/dL (3.5-5.2) 02/22/21 04:31 Globulin 2.8 g/dL (1.3-4.6) 02/22/21 04:31 Lipase 18 U/L (13-60) 02/19/21 16:23 TSH 0.01 uIU/mL (0.27-4.20) L 02/21/21 04:26 Free T4 1.68 ng/dL (0.82-1.77) 02/21/21 04:26 Urine Color Yellow (Yellow) 02/19/21 16:50 Urine Appearance Clear (CLEAR) 02/19/21 16:50 Urine pH 5 (5-7) 02/19/21 16:50 Ur Specific [place] 1.020 (1.005-1.030) 02/19/21 16:50 Urine Protein Neg (Negative) 02/19/21 16:50 Urine Glucose (UA) Norm (Normal) 02/19/21 16:50 Urine Ketones Negative (Negative) 02/19/21 16:50 Urine Blood 2+ (Negative) H 02/19/21 16:50 Urine Nitrate Negative (Negative) 02/19/21 16:50 Urine Bilirubin Neg (Negative) 02/19/21 16:50 Urine Urobilinogen 1 mg/dL (Negative) H 02/19/21 16:50 Ur Leukocyte Esterase Negative (Negative) 02/19/21 16:50 Urine RBC 0-4 /hpf (0-2) H 02/19/21 16:50 Urine WBC None /hpf (0-5) 02/19/21 16:50 Ur Squamous Epith Cells None /hpf (0-5) 02/19/21 16:50 Amorphous Sediment Not Reportable 02/19/21 16:50 Urine Bacteria Trace /hpf (NONE) 02/19/21 16:50 Urine Mucus 1+ /hpf 02/19/21 16:50 Thyroid Peroxidase Ab 91 IU/mL (<9) H 02/20/21 04:00 Complement C3c 110 mg/dL (82-185) 02/20/21 04:00 Complement C4c 20 mg/dL (15-53) 02/20/21 04:00 Hepatitis A IgM Ab Non-reactive (Nonreactive) 02/19/21 16:23 Hep Bs Antigen Non-reactive (Nonreactive) 02/19/21 16:23 Hep Bs Antibody 3.5 (11.5-1000) L 02/19/21 16:23 Hep B Core Total Ab Non-reactive (Nonreactive) 02/19/21 16:23 Hepatitis C Antibody Non-reactive (Nonreactive) 02/19/21 16:23 A&P Assessment and plan (1) Acute on chronic systolic heart failure: Clinically he seems to be compensated. The dose of the diuretics is being cut down. We will start him on oral Lasix. Status: Acute (2) Right upper quadrant pain: Has significant improvement of the symptoms Status: Acute (3) Atrial fibrillation: Patient may be continued on the subcu Lovenox. Need to be back on Eliquis based on the perfusion scan Status: Acute Qualifiers: Atrial fibrillation type: unspecified Qualified Code(s): I48.91 - Unspecified atrial fibrillation (4) Cardiomyopathy: Most likely the patient has nonischemic cardiomyopathy. He was found to have no significant obstructive coronary disease in the left coronary system. We may go ahead and do a myocardial perfusion imaging tomorrow to rule out any ischemia in the distribution of the right coronary artery. Discussed about prophylactic ICD/LifeVest. Patient is vehemently opposed to LifeVest. We will go ahead and start him on a low-dose of Entresto. Based on the clinical progress, further management decisions will be made. Status: Acute Qualifiers: Cardiomyopathy type: unspecified Qualified Code(s): I42.9 - Cardiomyopathy, unspecified Additional A&P Information Myocardial perfusion imaging tomorrow. Entresto 1 tablet p.o. twice daily. Telemetry and vital signs will be closely monitored. Based on the clinical progress on the results of the above, further recommendations will be made. Attestations Medical Necessity Statement*: Patient requires continued hospital stay for close monitoring and further management Coding Level of Care Code Acute Olive Picker for [facility] Diagnoses Acute on chronic systolic heart failure I50.23 Right upper quadrant pain R10.11 Atrial fibrillation I48.91 Atrial fibrillation type: unspecified Cardiomyopathy I42.9 Cardiomyopathy type: unspecified
[2021-02-22 14:48] LABS: ANA SCREEN, IFA NEGATIVE (NEGATIVE)
[2021-02-22] MEDS: famotidine 20 mg Tablet PO (17:34)
--- NOTE | 2021-02-22 20:26 | PC.NURSE ---
Shift Note Frequent safety and comfort rounds continue. Orders and/or nursing care completed as indicated. Patient monitored for response to intervention and treatment(s). 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 Patient and/or life assurance representative verbalizes understanding . Will continue to monitor.
[2021-02-22] MEDS: HYDROmorphone 1 mg/mL INJ 1 mL IVP (21:03)
[2021-02-23] VITALS (8 sets, daily range): BP systolic 87–108; BP diastolic 57–80; PULSE 79–96; RESP 16–33; TEMP 36.6–36.8; O2SAT 92–97
[2021-02-23] MEDS: FUROsemide 10 mg/mL SDV 4mL 40 MG IVP (03:31)
[2021-02-23] MEDS: piperacillin-tazobactam 3.375 GM in sodium chloride 0.9% (plus) 50 ML IV ×3 (03:31→20:12)
[2021-02-23 05:35] LABS: Basophils # 0.1 10^3/uL (0.0-0.1); Basophils % 0.8 %; Eosinophils # 0.1 10^3/uL (0.0-0.8); Eosinophils % 1.4 %; Hematocrit 48.8 % (42.0-52.0); Hemoglobin 16.2 g/dL (11.7-16.6); Lymphocytes # 3.3 10^3/uL (0.8-4.8); Lymphocytes % 33.8 %; Mean Corpuscular HGB Conc 33.2 g/dL (30.0-36.0); Mean Corpuscular Hemoglobin 29.8 pg (28.0-34.0); Mean Corpuscular Volume 89.9 fl (80-94); Monocytes # 1.1 10^3/uL (0.2-0.9); Monocytes % 11.2 %; Neutrophils # 5.17 10^3/uL (1.8-7.7); Neutrophils % 52.6 %; Nucleated Red Blood Cells % 0 %; Platelet Count 205 10^3/cmm (130-400); Red Blood Count 5.43 10^6/uL (4.1-5.3); Red Cell Distribution Width 13.7 % (12.1-15.1); White Blood Count 9.8 10^3/uL (4.0-10.0)
[2021-02-23 05:57] LABS: Alanine Aminotransferase 31 U/L (0-41); Albumin Level 3.5 g/dL (3.5-5.2); Alkaline Phosphatase 139 IU/L (40-130); Anion Gap 13.3 (5-19); Aspartate Amino Transferase 28 U/L (0-40); Blood Urea Nitrogen 28 mg/dL (6-20); Carbon Dioxide 30 mmol/L (22-29); Chloride 97 mmol/L (98-107); Globulin 2.8 g/dL (1.3-4.6); Glomerular Filtration Rate 44.6 mL/min (90-130); Glucose 94 mg/dL (65-115); Osmolality Calculated 287 mOsm/kg (285-295); Potassium 4.3 mmol/L (3.5-5.1); Sodium 136 mmol/L (136-145); Total Bilirubin 0.8 mg/dL (0.15-1.2); Total Protein 6.3 g/dL (6.6-8.7)
--- NOTE | 2021-02-23 07:24 | ECG_ITS ---
[facility] Test Date: 2021-02-23 Pat Name: Wild Nj Department: Room: 104 Gender: Male Destination Imagination Coordinator: : 1960 Requested By: Shanon Salas Order Number: [id number] Radha MD: Shanon Salas M.D. Interpretive Statements NAME OF STUDY: LEXISCAN SESTAMIBI STRESS TEST INDICATION: Chest Pain, PROCEDURE: At the baseline, the EKG revealed atrial fibrillation with a controlled ventricular response rate of 78 bpm. Diffuse nonspecific T wave changes. The baseline blood pressure was 102/50 mm Hg with a heart rate of 78 beats/min. Lexiscan was infused over a period of 20 seconds. A total of 0.4 milligrams of Lexiscan was infused. The stress phase was continued for a total of 5 minutes. Heart rate at the end of the stress phase was 103 with a blood pressure 94/72. The EKG at the peak infusion revealed no significant changes. Sestamibi was injected 20 seconds after the Lexiscan infusion. Blood pressure at the end of the recovery phase was 87/70 with a heart rate of 94 per minute. CONCLUSION: 1. No significant EKG changes with the LexiScan infusion 2. No LexiScan induced chest pain or cardiac arrhythmia 3. Normal blood pressure and heart rate response 4. Sestamibi/sestamibi perfusion scan pending; see separate report. Electronically Signed On 02-26-2021 13:33:58 CDT by Shanon Salas M.D. [email or web address]
--- NOTE | 2021-02-23 07:25 | NMCV_ITS ---
NM sudarshan perf SPECT r/s* [id number] Wild Nj Age: 60 Gender: M : 1960 Exam Date: 02/23/2021 09:35 Ordering Phys: Shanon Salas MD ([email or web address]) Technologist: JULIETH Urena Exam Location: [facility] Indications: EPIGASTRIC PAIN STRESS TEST [facility] IMAGE PROTOCOL Rest/Stress 1 Lexiscan Day Radiopharmaceutical Dose (mCi) Administration Site Administered by Rest: Tc-99m 10.8 IV JULIETH Urena Sestamibi Stress:Tc-99m 32.1 IV JULIETH Turner Sestamibi Rest: 23-Feb-2021 60 Discovery 630 Stress: 23-Feb-2021 30 Discovery 630 0.4mg Lexiscan. Images obtained in supine and prone position. SPECT RESULTS Technical Quality: Excellent Raw Data Analysis: Normal Image Corrections: No attenuation or motion correction applied Summed Stress Score: 1 Summed Rest Score: 2 Summed Difference Score: 1 PERFUSION FINDINGS Patchy areas of decreased tracer uptake was noted in the anteroseptal, inferoseptal and inferior wall regions. No significant reversibility was noted in these regions. FUNCTIONAL RESULTS (calculated via Gated SPECT) Stress Image LV EF (%): 18 Stress EDV (mL):226 TID: 0.93 Stress ESV (mL):185 FUNCTIONAL FINDINGS: The segmental wall motion analysis revealed severe diffuse hypokinesia of the left ventricle. IMPRESSIONS 1. Myocardial perfusion imaging revealing areas of persistent decreased uptake in the anteroseptal, inferoseptal and inferior wall regions,,of most likely represent attenuation artifacts. 2. Markedly diminished elevation fraction of 18%. 3. LV wall motion analysis revealing severe diffuse hypokinesia of the left ventricle. 4. Markedly dilated left ventricle with an end-systolic volume over 185 ml. No significant coronary ischemia, based on the above findings The above features are suggestive of a nonischemic form of cardiomyopathy Dr Shanon Salas MD FACC (Electronically Signed) Final Date: 23 February 2021 13:35 S
--- NOTE | 2021-02-23 09:31 | PC.SOCIAL ---
IMM Update: pg 2 of IMM updated and reviewed w/ patient. Copy provided.
[2021-02-23 10:08] LABS: COMPLEMENT, TOTAL (CH50) >60 U/mL (31-60)
[2021-02-23] MEDS: regadenoson 0.4 Mg/5 ml Syringe IVP (10:29)
[2021-02-23] MEDS: methIMAzole 5 MG Tablet PO (12:30)
[2021-02-23] MEDS: rivaroxaban 10 mg Tablet 20 MG PO (12:30)
[2021-02-23] MEDS: famotidine 20 mg Tablet PO ×2 (12:30→19:07)
[2021-02-23] MEDS: potassium chloride ER 20 mEq Tablet PO ×3 (12:30→20:12)
[2021-02-23] MEDS: sacubitril/valsartan 24-26 mg Tablet 1 EACH PO ×2 (12:31→19:06)
--- NOTE | 2021-02-23 13:39 | PM.PN ---
Subjective Subjective: Interval history: The patient is feeling better. Epigastric pain has improved a lot. Denies any chest pain or chest tightness. He had a myocardial perfusion imaging today. There was no significant ischemia, based on the perfusion scan. Medications: Reviewed: Yes Medication Review Details: Current Medications Acetaminophen (Acetaminophen 325 Mg Tablet) 650 mg PO Q6H PRN PRN Reason: Mild/Mod Pain Or Temp >/= 101 Aminophylline (Aminophylline 25 Mg/Ml Sdv 10 Ml) 25 mg IVP Q2M PRN PRN Reason: see dose instructions Stop: 02/24/21 07:24 Famotidine (Famotidine 20 Mg Tablet) 20 mg PO BID [facility] Last Admin: 02/23/21 12:30 Dose: 20 mg Documented by: Furosemide (Furosemide 10 Mg/Ml Sdv 4ml) 40 mg IVP Q12H [facility] Last Admin: 02/23/21 03:31 Dose: 40 mg Documented by: Hydromorphone HCl (Hydromorphone 1 Mg/Ml Inj 1 Ml) 1 mg IVP Q6H PRN PRN Reason: pain Last Admin: 02/22/21 21:03 Dose: 1 mg Documented by: Piperacillin Sod/Tazobactam (Sod 3.375 gm/ Sodium Chloride) 50 mls @ 12.5 mls/hr IV Q8H [facility]; Protocol Last Admin: 02/23/21 12:31 Dose: 12.5 mls/hr Documented by: Methimazole (Methimazole 5 Mg Tablet) 5 mg PO DAILY [facility] Last Admin: 02/23/21 12:30 Dose: 5 mg Documented by: Metoprolol Tartrate (Metoprolol Tartrate 25 Mg Tablet) 12.5 mg PO BID@0900,2100 [facility] Last Admin: 02/21/21 10:46 Dose: 12.5 mg Documented by: Naloxone HCl (Naloxone 0.4 Mg/Ml Sdv) 0.1 mg IVP Q2M PRN PRN Reason: OPIATERV Nitroglycerin (Nitroglycerin 0.4 Mg Sublingual Tablet) 0.4 mg SUBLINGUAL Q5M PRN PRN Reason: CHEST PAIN Stop: 02/24/21 07:24 Ondansetron HCl (Ondansetron 2 Mg/Ml Sdv 2 Ml) 4 mg IVP Q4H PRN PRN Reason: NAUSEA AND VOMITING Last Admin: 02/21/21 21:15 Dose: 4 mg Documented by: Ondansetron HCl (Ondansetron 2 Mg/Ml Sdv 2 Ml) 4 mg IVP Q2M PRN PRN Reason: NAUSEA Potassium Chloride (Potassium Chloride Er 20 Meq Tablet) 20 meq PO TID [facility] Last Admin: 02/23/21 12:30 Dose: 20 meq Documented by: Regadenoson (Regadenoson 0.4 Mg/5 Ml Syringe) 0.4 mg IVP ONCE PRN PRN Reason: Lexiscan Stress Test Rivaroxaban (Rivaroxaban 10 Mg Tablet) 20 mg PO DAILY [facility] Last Admin: 02/23/21 12:30 Dose: 20 mg Documented by: Sacubitril/Valsartan (Sacubitril/Valsartan 24-26 Mg Tablet) 1 each PO BID [facility] Last Admin: 02/23/21 12:31 Dose: 1 each Documented by: Vitals/I&O/Wt Last Vital Signs Temp 98 F 02/23/21 03:15 Pulse 88 02/23/21 10:32 Resp 21 H 02/23/21 03:15 BP 87/70 02/23/21 10:32 Pulse Ox 94 02/23/21 03:15 02/22/21 02/23/21 02/23/21 22:59 06:59 14:59 Intake Total 580 / 1822 250 / 2072 50 / 50 Output Total 1170 / 3170 400 / 3570 Balance -590 / -1348 -150 / -1498 50 / 50 Physical Exam Narrative: EXAM NARRATIVE: GENERAL: The patient is alert and oriented times three. Not in any acute distress. HEENT: No significant pallor, icterus or lymphadenopathy. The pupils are symmetrical oral cavity: There are no mucous membrane lesions. NECK: Trachea appears to be central. No masses noted. No JVD or thyromegaly appreciated. No carotid bruit. RESPIRATORY: Chest is symmetrical. No intercostals muscle retraction or any accessory muscle activation. There is no chest wall tenderness. Breath sounds are heard bilaterally. Few fine rales bilaterally at the bases. BREASTS: Deferred. HEART: The PMI is in the 5th left intercostals space just inside the midclavicular line. No palpable precordial events. S1 and S2 are normal. No S3 or S4 heard. No pericardial rub or any click heard. Short systolic murmur the left sternal border. No diastolic murmurs. ABDOMEN: Minimal tenderness right subcostal and epigastric regions. Hepatomegaly present. RECTAL: Deferred. LYMPHATIC: No lymphadenopathy noted in the neck or groin. EXTREMITIES: No edema or cyanosis. No clubbing. The pulses are symmetrical bilaterally. The radial, femoral, dorsalis pedis and the posterior tibial pulses are palpated and found to be in good volume and amplitude. MUSCULOSKELETAL: No acute joint deformities or swelling SKIN: Healed surgical NEUROPSYCHIATRIC: The patient is alert and oriented x3. Appears to be very anxious. No focal motor deficits. Data : 02/23/21 04:57 02/24/21 04:25 Other Labs: Laboratory Last Values WBC 9.8 10^3/uL (4.0-10.0) 02/23/21 04:57 RBC 5.43 10^6/uL (4.1-5.3) H 02/23/21 04:57 Hgb 16.2 g/dL (11.7-16.6) 02/23/21 04:57 Hct 48.8 % (42.0-52.0) 02/23/21 04:57 MCV 89.9 fl (80-94) 02/23/21 04:57 MCH 29.8 pg (28.0-34.0) 02/23/21 04:57 MCHC 33.2 g/dL (30.0-36.0) 02/23/21 04:57 RDW 13.7 % (12.1-15.1) 02/23/21 04:57 Plt Count 205 10^3/cmm (130-400) 02/23/21 04:57 MPV 11.0 fL (7.4-10.4) H 02/23/21 04:57 Neut % (Auto) 52.6 % 02/23/21 04:57 Lymph % (Auto) 33.8 % 02/23/21 04:57 [place] % (Auto) 11.2 % 02/23/21 04:57 Eos % (Auto) 1.4 % 02/23/21 04:57 Baso % (Auto) 0.8 % 02/23/21 04:57 Neut # (Auto) 5.17 10^3/uL (1.8-7.7) 02/23/21 04:57 Lymph # (Auto) 3.3 10^3/uL (0.8-4.8) 02/23/21 04:57 [place] # (Auto) 1.1 10^3/uL (0.2-0.9) H 02/23/21 04:57 Eos # (Auto) 0.1 10^3/uL (0.0-0.8) 02/23/21 04:57 Baso # (Auto) 0.1 10^3/uL (0.0-0.1) 02/23/21 04:57 Nucleated RBC % (auto) 0 % 02/23/21 04:57 Nucleated RBCs # 0.0 /100WBC 02/23/21 04:57 Sodium 136 mmol/L (136-145) 02/23/21 04:57 Potassium 4.3 mmol/L (3.5-5.1) 02/23/21 04:57 Chloride 97 mmol/L (98-107) L 02/23/21 04:57 Carbon Dioxide 30 mmol/L (22-29) H 02/23/21 04:57 Anion Gap 13.3 (5-19) 02/23/21 04:57 BUN 28 mg/dL (6-20) H 02/23/21 04:57 Creatinine 1.6 mg/dL (0.7-1.2) H 02/23/21 04:57 GFR Calculation 44.6 mL/min (90-130) L 02/23/21 04:57 Glucose 94 mg/dL (65-115) 02/23/21 04:57 Calculated Osmolality 287 mOsm/kg (285-295) 02/23/21 04:57 Lactic Acid 1.4 mmol/L (0.5-2.2) 02/19/21 16:23 Calcium 9.0 mg/dL (8.5-10.5) 02/23/21 04:57 Magnesium 1.9 mg/dL (1.7-2.3) 02/22/21 04:31 Total Bilirubin 0.8 mg/dL (0.15-1.2) 02/23/21 04:57 Direct Bilirubin 0.30 mg/dL (0.00-0.30) 02/22/21 04:31 AST 28 U/L (0-40) 02/23/21 04:57 ALT 31 U/L (0-41) 02/23/21 04:57 Alkaline Phosphatase 139 IU/L (40-130) H 02/23/21 04:57 Creatine Kinase 38 U/L (39-308) L 02/19/21 16:23 Troponin T Baseline 16 ng/L (0-15) H 02/19/21 16:23 Troponin T 120 Minute 17.03 ng/L (0-15) H 02/19/21 18:15 Delta Troponin T 1.03 ABS# (0-10) 02/19/21 18:15 Troponin T Hi Sens 6Hr 20.35 ng/L (0-15) H 02/19/21 21:58 Troponin T Hi Sens 6Hr Delta 4.35 ng/L (0-12) 02/19/21 21:58 NT-Pro-B Natriuret Pep 8619 pg/mL (0-125) H 02/19/21 18:15 Total Protein 6.3 g/dL (6.6-8.7) L 02/23/21 04:57 Albumin 3.5 g/dL (3.5-5.2) 02/23/21 04:57 Globulin 2.8 g/dL (1.3-4.6) 02/23/21 04:57 Lipase 18 U/L (13-60) 02/19/21 16:23 TSH 0.01 uIU/mL (0.27-4.20) L 02/21/21 04:26 Free T4 1.68 ng/dL (0.82-1.77) 02/21/21 04:26 Urine Color Yellow (Yellow) 02/19/21 16:50 Urine Appearance Clear (CLEAR) 02/19/21 16:50 Urine pH 5 (5-7) 02/19/21 16:50 Ur Specific [place] 1.020 (1.005-1.030) 02/19/21 16:50 Urine Protein Neg (Negative) 02/19/21 16:50 Urine Glucose (UA) Norm (Normal) 02/19/21 16:50 Urine Ketones Negative (Negative) 02/19/21 16:50 Urine Blood 2+ (Negative) H 02/19/21 16:50 Urine Nitrate Negative (Negative) 02/19/21 16:50 Urine Bilirubin Neg (Negative) 02/19/21 16:50 Urine Urobilinogen 1 mg/dL (Negative) H 02/19/21 16:50 Ur Leukocyte Esterase Negative (Negative) 02/19/21 16:50 Urine RBC 0-4 /hpf (0-2) H 02/19/21 16:50 Urine WBC None /hpf (0-5) 02/19/21 16:50 Ur Squamous Epith Cells None /hpf (0-5) 02/19/21 16:50 Amorphous Sediment Not Reportable 02/19/21 16:50 Urine Bacteria Trace /hpf (NONE) 02/19/21 16:50 Urine Mucus 1+ /hpf 02/19/21 16:50 RYLIE IFA Animal Tis Res Negative (NEGATIVE) 02/20/21 04:00 Thyroid Peroxidase Ab 91 IU/mL (<9) H 02/20/21 04:00 Complement C3c 110 mg/dL (82-185) 02/20/21 04:00 Complement C4c 20 mg/dL (15-53) 02/20/21 04:00 CH50 Classical Pathway >60 U/mL (31-60) H 02/20/21 04:00 Hepatitis A IgM Ab Non-reactive (Nonreactive) 02/19/21 16:23 Hep Bs Antigen Non-reactive (Nonreactive) 02/19/21 16:23 Hep Bs Antibody 3.5 (11.5-1000) L 02/19/21 16:23 Hep B Core Total Ab Non-reactive (Nonreactive) 02/19/21 16:23 Hepatitis C Antibody Non-reactive (Nonreactive) 02/19/21 16:23 A&P Assessment and plan (1) Acute on chronic systolic heart failure: Continue on the current dose of the Lasix. Seems to be tolerating Entresto so far well. We will continue on the current dose. Status: Acute (2) Right upper quadrant pain: Has significant improvement of the symptoms Status: Acute (3) Atrial fibrillation: Will discontinue the Lovenox. Restart the Xarelto. Status: Acute Qualifiers: Atrial fibrillation type: unspecified Qualified Code(s): I48.91 - Unspecified atrial fibrillation (4) Nonischemic dilated cardiomyopathy: Discussed about prophylactic ICD/LifeVest. Patient is now agreeable for LifeVest. So we will go ahead and order this. Status: Acute Additional A&P Information Patient was still hypotensive this morning. Currently the blood pressure seems to be improving. Attestations Medical Necessity Statement*: Disposition as per the primary Coding Level of Care Code Acute Primer Inserting Machine Adjuster for Rene Uriostegui History Detailed Exam Detailed Medical Decision Making Moderate Complexity Diagnoses Acute on chronic systolic heart failure I50.23 Right upper quadrant pain R10.11 Atrial fibrillation I48.91 Atrial fibrillation type: unspecified Nonischemic dilated cardiomyopathy I42.0
--- NOTE | 2021-02-23 16:40 | P.PN_ITS ---
Subjective Subjective: Interval history: Patient seen at bedside with his present in the room. Plan was to discharge him today but he is interested in getting the LifeVest placed before leaving. Vitals/I&O/Wt Last Vital Signs Temp 98 F 02/23/21 03:15 Pulse 88 02/23/21 10:32 Resp 21 H 02/23/21 03:15 BP 87/70 02/23/21 10:32 Pulse Ox 94 02/23/21 03:15 02/23/21 02/23/21 02/23/21 06:59 14:59 22:59 Intake Total 250 / 2072 50 / 50 Output Total 400 / 3570 1100 / 1100 Balance -150 / -1498 -1050 / -1050 Physical Exam Narrative: EXAM NARRATIVE: General: Alert oriented x3, patient seen sitting up in bed appearing comfortable. Appears cachectic and frail. HEENT: Normocephalic, atraumatic, EOMI, breathing room air Cardio: Regular rate rhythm, normal S1-S2, no murmurs rubs gallops, Respiratory: Good bilateral air entry, clear to auscultation bilaterally GI: Abdomen soft, abdomen nontender today.. Nondistended, bowel sounds + Behavior: Appropriate and cooperative Extremities: No lower extremity edema appreciated today. no cyanosis Data : 02/23/21 04:57 02/23/21 04:57 A&P Assessment and plan (1) Acute acalculous cholecystitis: Status: Acute (2) Atrial fibrillation: Status: Acute Qualifiers: Atrial fibrillation type: unspecified Qualified Code(s): I48.91 - Unspecified atrial fibrillation (3) Chronic anticoagulation: Status: Acute (4) Pleural effusion: Status: Acute Additional A&P Information #Acute on chronic systolic congestive heart failure, EF 15 to 20%, newly reduced EF. Previously had EF of 30 to 35%. #Atrial fibrillation rate controlled. #Hx of DVT popliteal artery s/p embolectomy August 2020 #Hyperthyroidism #Bilateral pleural effusions most likely secondary to heart failure #Chronic cholecystitis #Acute kidney injury Baseline creatinine 0.8. - Presenting today with right upper quadrant pain, poor p.o. intake, abdominal bloating. CT and ultrasound concerning for acalculous cholecystitis. Seen by general surgery. HIDA scan was performed. Report showing possibility of hepatitis. Abnormal gallbladder ejection fraction. Recent possibility of chronic cholecystitis. I discussed with Dr. Dejesus over the phone. Patient needs to be optimized from heart failure standpoint and then surgery can be considered. No emergent surgery needed for cholecystectomy at this point. It is possible that his right upper quadrant pain is related to his heart failure. I will treat patient with Zosyn while inpatient. And at discharge we will switch him to Augmentin to complete 7 days empirically. Hepatitis panel ne [place]. - Currently rate controlled with heart rate between 90-1 10 Did review records from [facility]. Patient was diagnosed with systolic heart failure and placed on medications. He does not take any meds because he claims that they were killing him. He was only taking the Xarelto and the Lipitor. Patient refuses to take other medications. He also stopped taking his methimazole for hyperthyroidism. TSH returned at 0.01. Free T4 has been ordered. Methimazole has been restarted. We will set him up with endocrinology follow-up at discharge. Also on Xarelto 15 mg p.o. daily for history of DVT and A. fib. Will hold metoprolol for stress test tomorrow. Atrial fibrillation can be due to his hyperthyroidism as well. So far he is rate has been controlled and blood pressure has been stable while inpatient. Echocardiogram did show EF of 15 to 20%. BNP elevated on admission. Most likel y nonischemic cardiomyopathy at this point. Cardiology is on board. Continue Lasix at 40 mg daily. FELA not improving. Creatinine still 1.6 same as yesterday. Continue Entresto. Patient would like to set up as LifeVest prior to discharge. I have placed the order for that. Patient stated very clearly in front of his that if he is able to receive the LifeVest tomorrow then it is great but if he is unable to get it tomorrow he would like to go home without it and then it can be set up as an outpatient even if it takes greater than a week to receive it. If in between that time of hospital discharge and him receiving the LifeVest something happens to him example cardiac arrest or he understands the risk and would still like to go home tomorrow regardless of him receiving the vest. At that point the hospital or the doctors will not be liable for his condition. Patient also states that he would like to set him self up with the primary care physician and a muffler tender here in the [facility] in [place] as he is not interested to go back to [facility]. Attestations Medical Necessity Statement*: Will need LifeVest at discharge. It cannot be set up today. Plan for discharge tomorrow. Time Spent in Patient Care: 16 - 35 minutes (>than 50% of time spent in counselling and/or direct pt care on unit) . Coding Level of Care Code Acute Hog Room Supervisor for [facility] Tess Diagnoses Acute acalculous cholecystitis K81.0 Atrial fibrillation I48.91 Atrial fibrillation type: unspecified Chronic anticoagulation Z79.01 Pleural effusion J90
[2021-02-23] MEDS: HYDROmorphone 1 mg/mL INJ 1 mL IVP (21:45)
[2021-02-23 22:22] LABS: CENTROMERE B ANTIBODY <1.0 NEG AI (<1.0 NEG); JO-1 ANTIBODY <1.0 NEG AI (<1.0 NEG); RNP ANTIBODY <1.0 NEG AI (<1.0 NEG); SCL-70 ANTIBODY <1.0 NEG AI (<1.0 NEG); SJOGREN'S ANTIBODY (SS-A) <1.0 NEG AI (<1.0 NEG); SM ANTIBODY <1.0 NEG AI (<1.0 NEG); SS-B <1.0 NEG AI (<1.0 NEG)
[2021-02-24] VITALS (7 sets, daily range): BP systolic 99–109; BP diastolic 60–70; PULSE 82–100; RESP 12–28; TEMP 36.6; O2SAT 95–100
[2021-02-24] MEDS: piperacillin-tazobactam 3.375 GM in sodium chloride 0.9% (plus) 50 ML IV ×2 (04:25→11:35)
[2021-02-24 06:11] LABS: Anion Gap 11.6 (5-19); Blood Urea Nitrogen 23 mg/dL (6-20); Calcium 8.9 mg/dL (8.5-10.5); Carbon Dioxide 27 mmol/L (22-29); Chloride 103 mmol/L (98-107); Glomerular Filtration Rate 68.8 mL/min (90-130); Glucose 98 mg/dL (65-115); Osmolality Calculated 288 mOsm/kg (285-295); Potassium 4.6 mmol/L (3.5-5.1); Sodium 137 mmol/L (136-145)
--- NOTE | 2021-02-24 06:21 | PM.PN ---
Subjective Subjective: Interval history: Patient feels much better. Tolerating p.o. intake. Medications: Reviewed: Yes Vitals/I&O/Wt Last Vital Signs Temp 98 F 02/24/21 03:17 Pulse 87 02/24/21 06:14 Resp 13 02/24/21 03:17 BP 109/70 02/24/21 03:17 Pulse Ox 100 02/24/21 03:17 02/23/21 02/23/21 02/24/21 14:59 22:59 06:59 Intake Total 410 / 410 50 / 460 350 / 810 Output Total 1100 / 1100 300 / 1400 650 / 2050 Balance -690 / -690 -250 / -940 -300 / -1240 Physical Exam Narrative: EXAM NARRATIVE: Patient is conscious alert oriented X3 BMI 20 Head and neck examination PERRLA no masses no cervical lymphadenopathy no jaundice Abdomen nontender nondistended soft no organomegaly guarding or rigidity/no signs of peritonitis Data : 02/23/21 04:57 02/24/21 04:25 A&P Assessment and plan (1) Right upper quadrant pain: From surgical standpoint of view recommend a low-fat cardiac diet Follow-up surgery office in 3 weeks Assurance and education All questions have been answered and all concerns have been addressed to patient's satisfaction. Thank you for consulting general surgery to participate taking care Status: Acute Attestations Medical Necessity Statement*: Per admitting service Time Spent in Patient Care: (>than 50% of time spent in counselling and/or direct pt care on unit). Coding Level of Care Code Acute Commercial Collections Driver for Rene Uriostegui Diagnoses Right upper quadrant pain R10.11
[2021-02-24] MEDS: famotidine 20 mg Tablet PO (08:02)
[2021-02-24] MEDS: sacubitril/valsartan 24-26 mg Tablet 1 EACH PO (08:02)
[2021-02-24] MEDS: potassium chloride ER 20 mEq Tablet PO (08:02)
[2021-02-24] MEDS: rivaroxaban 10 mg Tablet 20 MG PO (08:02)
[2021-02-24] MEDS: FUROsemide 40 mg Tablet PO (08:02)
[2021-02-24] MEDS: methIMAzole 5 MG Tablet PO (08:02)
--- NOTE | 2021-02-24 08:35 | PM.PN ---
Subjective Subjective: Interval history: Patient continues to improve with respect to supple abdomen/epigastric pain. Seems to be tolerating the Entresto so far well. He changed his mind about the LifeVest. Now he is wanting to have it. Medications: Reviewed: Yes Medication Review Details: Current Medications Acetaminophen (Acetaminophen 325 Mg Tablet) 650 mg PO Q6H PRN PRN Reason: Mild/Mod Pain Or Temp >/= 101 Famotidine (Famotidine 20 Mg Tablet) 20 mg PO BID [facility] Last Admin: 02/24/21 08:02 Dose: 20 mg Documented by: Furosemide (Furosemide 40 Mg Tablet) 40 mg PO DAILY@0800 [facility] Last Admin: 02/24/21 08:02 Dose: 40 mg Documented by: Piperacillin Sod/Tazobactam (Sod 3.375 gm/ Sodium Chloride) 50 mls @ 12.5 mls/hr IV Q8H [facility]; Protocol Last Admin: 02/24/21 04:25 Dose: 12.5 mls/hr Documented by: Methimazole (Methimazole 5 Mg Tablet) 5 mg PO DAILY [facility] Last Admin: 02/24/21 08:02 Dose: 5 mg Documented by: Naloxone HCl (Naloxone 0.4 Mg/Ml Sdv) 0.1 mg IVP Q2M PRN PRN Reason: OPIATERV Ondansetron HCl (Ondansetron 2 Mg/Ml Sdv 2 Ml) 4 mg IVP Q4H PRN PRN Reason: NAUSEA AND VOMITING Last Admin: 02/21/21 21:15 Dose: 4 mg Documented by: Ondansetron HCl (Ondansetron 2 Mg/Ml Sdv 2 Ml) 4 mg IVP Q2M PRN PRN Reason: NAUSEA Potassium Chloride (Potassium Chloride Er 20 Meq Tablet) 20 meq PO TID [facility] Last Admin: 02/24/21 08:02 Dose: 20 meq Documented by: Regadenoson (Regadenoson 0.4 Mg/5 Ml Syringe) 0.4 mg IVP ONCE PRN PRN Reason: Lexiscan Stress Test Rivaroxaban (Rivaroxaban 10 Mg Tablet) 20 mg PO DAILY [facility] Last Admin: 02/24/21 08:02 Dose: 20 mg Documented by: Sacubitril/Valsartan (Sacubitril/Valsartan 24-26 Mg Tablet) 1 each PO BID [facility] Last Admin: 02/24/21 08:02 Dose: 1 each Documented by: Vitals/I&O/Wt Last Vital Signs Temp 98 F 02/24/21 03:17 Pulse 87 02/24/21 06:14 Resp 13 02/24/21 03:17 BP 109/70 02/24/21 03:17 Pulse Ox 100 02/24/21 03:17 02/23/21 02/24/21 02/24/21 22:59 06:59 14:59 Intake Total 50 / 460 350 / 810 Output Total 300 / 1400 650 / 2050 Balance -250 / -940 -300 / -1240 Physical Exam Narrative: EXAM NARRATIVE: GENERAL: The patient is alert and oriented times three. Not in any acute distress. HEENT: No significant pallor, icterus or lymphadenopathy. The pupils are symmetrical oral cavity: There are no mucous membrane lesions. NECK: Trachea appears to be central. No masses noted. No JVD or thyromegaly appreciated. No carotid bruit. RESPIRATORY: Chest is symmetrical. No intercostals muscle retraction or any accessory muscle activation. There is no chest wall tenderness. Breath sounds are heard bilaterally. Few fine rales bilaterally at the bases. BREASTS: Deferred. HEART: The PMI is in the 5th left intercostals space just inside the midclavicular line. No palpable precordial events. S1 and S2 are normal. No S3 or S4 heard. No pericardial rub or any click heard. Short systolic murmur the left sternal border. No diastolic murmurs. ABDOMEN: Minimal tenderness right subcostal and epigastric regions. Hepatomegaly present. RECTAL: Deferred. LYMPHATIC: No lymphadenopathy noted in the neck or groin. EXTREMITIES: No edema or cyanosis. No clubbing. The pulses are symmetrical bilaterally. The radial, femoral, dorsalis pedis and the posterior tibial pulses are palpated and found to be in good volume and amplitude. MUSCULOSKELETAL: No acute joint deformities or swelling SKIN: Healed surgical NEUROPSYCHIATRIC: The patient is alert and oriented x3. Appears to be very anxious. No focal motor deficits. Data : 02/23/21 04:57 02/24/21 04:25 Other Labs: Laboratory Last Values WBC 9.8 10^3/uL (4.0-10.0) 02/23/21 04:57 RBC 5.43 10^6/uL (4.1-5.3) H 02/23/21 04:57 Hgb 16.2 g/dL (11.7-16.6) 02/23/21 04:57 Hct 48.8 % (42.0-52.0) 02/23/21 04:57 MCV 89.9 fl (80-94) 02/23/21 04:57 MCH 29.8 pg (28.0-34.0) 02/23/21 04:57 MCHC 33.2 g/dL (30.0-36.0) 02/23/21 04:57 RDW 13.7 % (12.1-15.1) 02/23/21 04:57 Plt Count 205 10^3/cmm (130-400) 02/23/21 04:57 MPV 11.0 fL (7.4-10.4) H 02/23/21 04:57 Neut % (Auto) 52.6 % 02/23/21 04:57 Lymph % (Auto) 33.8 % 02/23/21 04:57 [place] % (Auto) 11.2 % 02/23/21 04:57 Eos % (Auto) 1.4 % 02/23/21 04:57 Baso % (Auto) 0.8 % 02/23/21 04:57 Neut # (Auto) 5.17 10^3/uL (1.8-7.7) 02/23/21 04:57 Lymph # (Auto) 3.3 10^3/uL (0.8-4.8) 02/23/21 04:57 [place] # (Auto) 1.1 10^3/uL (0.2-0.9) H 02/23/21 04:57 Eos # (Auto) 0.1 10^3/uL (0.0-0.8) 02/23/21 04:57 Baso # (Auto) 0.1 10^3/uL (0.0-0.1) 02/23/21 04:57 Nucleated RBC % (auto) 0 % 02/23/21 04:57 Nucleated RBCs # 0.0 /100WBC 02/23/21 04:57 Sodium 137 mmol/L (136-145) 02/24/21 04:25 Potassium 4.6 mmol/L (3.5-5.1) 02/24/21 04:25 Chloride 103 mmol/L (98-107) 02/24/21 04:25 Carbon Dioxide 27 mmol/L (22-29) 02/24/21 04:25 Anion Gap 11.6 (5-19) 02/24/21 04:25 BUN 23 mg/dL (6-20) H 02/24/21 04:25 Creatinine 1.1 mg/dL (0.7-1.2) 02/24/21 04:25 GFR Calculation 68.8 mL/min (90-130) L 02/24/21 04:25 Glucose 98 mg/dL (65-115) 02/24/21 04:25 Calculated Osmolality 288 mOsm/kg (285-295) 02/24/21 04:25 Lactic Acid 1.4 mmol/L (0.5-2.2) 02/19/21 16:23 Calcium 8.9 mg/dL (8.5-10.5) 02/24/21 04:25 Magnesium 1.9 mg/dL (1.7-2.3) 02/22/21 04:31 Total Bilirubin 0.8 mg/dL (0.15-1.2) 02/23/21 04:57 Direct Bilirubin 0.30 mg/dL (0.00-0.30) 02/22/21 04:31 AST 28 U/L (0-40) 02/23/21 04:57 ALT 31 U/L (0-41) 02/23/21 04:57 Alkaline Phosphatase 139 IU/L (40-130) H 02/23/21 04:57 Creatine Kinase 38 U/L (39-308) L 02/19/21 16:23 Troponin T Baseline 16 ng/L (0-15) H 02/19/21 16:23 Troponin T 120 Minute 17.03 ng/L (0-15) H 02/19/21 18:15 Delta Troponin T 1.03 ABS# (0-10) 02/19/21 18:15 Troponin T Hi Sens 6Hr 20.35 ng/L (0-15) H 02/19/21 21:58 Troponin T Hi Sens 6Hr Delta 4.35 ng/L (0-12) 02/19/21 21:58 NT-Pro-B Natriuret Pep 8619 pg/mL (0-125) H 02/19/21 18:15 Total Protein 6.3 g/dL (6.6-8.7) L 02/23/21 04:57 Albumin 3.5 g/dL (3.5-5.2) 02/23/21 04:57 Globulin 2.8 g/dL (1.3-4.6) 02/23/21 04:57 Lipase 18 U/L (13-60) 02/19/21 16:23 TSH 0.01 uIU/mL (0.27-4.20) L 02/21/21 04:26 Free T4 1.68 ng/dL (0.82-1.77) 02/21/21 04:26 Urine Color Yellow (Yellow) 02/19/21 16:50 Urine Appearance Clear (CLEAR) 02/19/21 16:50 Urine pH 5 (5-7) 02/19/21 16:50 Ur Specific [place] 1.020 (1.005-1.030) 02/19/21 16:50 Urine Protein Neg (Negative) 02/19/21 16:50 Urine Glucose (UA) Norm (Normal) 02/19/21 16:50 Urine Ketones Negative (Negative) 02/19/21 16:50 Urine Blood 2+ (Negative) H 02/19/21 16:50 Urine Nitrate Negative (Negative) 02/19/21 16:50 Urine Bilirubin Neg (Negative) 02/19/21 16:50 Urine Urobilinogen 1 mg/dL (Negative) H 02/19/21 16:50 Ur Leukocyte Esterase Negative (Negative) 02/19/21 16:50 Urine RBC 0-4 /hpf (0-2) H 02/19/21 16:50 Urine WBC None /hpf (0-5) 02/19/21 16:50 Ur Squamous Epith Cells None /hpf (0-5) 02/19/21 16:50 Amorphous Sediment Not Reportable 02/19/21 16:50 Urine Bacteria Trace /hpf (NONE) 02/19/21 16:50 Urine Mucus 1+ /hpf 02/19/21 16:50 RYLIE IFA Animal Tis Res Negative (NEGATIVE) 02/20/21 04:00 GIOVANA-1 Antibody <1.0 neg AI (<1.0 NEG) 02/20/21 04:00 SS-A Antibody <1.0 neg AI (<1.0 NEG) 02/20/21 04:00 SS-B Antibody <1.0 neg AI (<1.0 NEG) 02/20/21 04:00 Sm (Nunez) Antibody <1.0 neg AI (<1.0 NEG) 02/20/21 04:00 RESEARCH CONSULTANT Antibody <1.0 neg AI (<1.0 NEG) 02/20/21 04:00 Scl-70 Antibody <1.0 neg AI (<1.0 NEG) 02/20/21 04:00 Centromere B Antibody <1.0 neg AI (<1.0 NEG) 02/20/21 04:00 Thyroid Peroxidase Ab 91 IU/mL (<9) H 02/20/21 04:00 Complement C3c 110 mg/dL (82-185) 02/20/21 04:00 Complement C4c 20 mg/dL (15-53) 02/20/21 04:00 CH50 Classical Pathway >60 U/mL (31-60) H 02/20/21 04:00 Hepatitis A IgM Ab Non-reactive (Nonreactive) 02/19/21 16:23 Hep Bs Antigen Non-reactive (Nonreactive) 02/19/21 16:23 Hep Bs Antibody 3.5 (11.5-1000) L 02/19/21 16:23 Hep B Core Total Ab Non-reactive (Nonreactive) 02/19/21 16:23 Hepatitis C Antibody Non-reactive (Nonreactive) 02/19/21 16:23 A&P Assessment and plan (1) Acute on chronic systolic heart failure: Continue on the current dose of the Lasix. Seems to be tolerating Entresto so far well. We will continue on the current dose. Also will go ahead and order for the LifeVest. Status: Acute (2) Right upper quadrant pain: Has significant improvement of the symptoms Status: Acute (3) Atrial fibrillation: Patient is started on Xarelto which may be continued. Status: Acute Qualifiers: Atrial fibrillation type: unspecified Qualified Code(s): I48.91 - Unspecified atrial fibrillation (4) Nonischemic dilated cardiomyopathy: Discussed about prophylactic ICD/LifeVest. Patient is now agreeable for LifeVest. So we will go ahead and order this. Status: Acute Additional A&P Information Other problems are as outlined before Attestations Medical Necessity Statement*: Possible discharge home today Coding Level of Care Code Acute Covering And Lining Supervisor for [place] Fwd History Detailed Exam Detailed Medical Decision Making Moderate Complexity Diagnoses Acute on chronic systolic heart failure I50.23 Right upper quadrant pain R10.11 Atrial fibrillation I48.91 Atrial fibrillation type: unspecified Nonischemic dilated cardiomyopathy I42.0
--- NOTE | 2021-02-24 12:30 | P.DS_ITS ---
Discharge Providers Date of Admission: 02/20/21 00:40 Date of Discharge: February 24, 2021 Attending Provider at Admission: Renetta Andres MD Attending Provider at Discharge: Katrin Pruett MD Primary Care Provider: Frantz Guerin MD Diagnoses at Discharge Discharge Diagnosis (1) Acute on chronic systolic heart failure: Status: Resolved (2) Right upper quadrant pain: Status: Resolved (3) Atrial fibrillation: Status: Acute Qualifiers: Atrial fibrillation type: unspecified Qualified Code(s): I48.91 - Unspecified atrial fibrillation (4) Nonischemic dilated cardiomyopathy: Status: Acute Reason for Visit Reason for Visit: UPPER ABD PAIN HURTS LIKE HELL Hospital Course Hospital Course As per Dr. Andres [place] is a 60 year old male with past medical history of intermittent A. fib, history of DVT in August 2020, presenting to the hospital today with complaints of right upper quadrant pain that has been going on for 3 days now. He initially went to [facility] ER 2 days ago where he had a CAT scan of his abdomen, was reportedly told that CT is normal at discharge 2. However the pain persisted and he presented at [facility] last night. Describes the pain as 9 out of 10 intensity, located in the right upper quadrant, radiating around in a bandlike fashion. He has never had similar pain in the past. No history of alcohol prescription. No chest pain dyspnea or palpitations. CT of the abdomen and ultrasound concerning for acalculous cholecystitis. Associated symptoms include nausea, poor p.o. intake, abdominal bloatin, no vomiting. Small bowel movements over the past 2 days. Past history is notable for what appears to be an unprovoked DVT of the left lower extremity in August 2020. Patient describes undergoing what appears to be a thrombectomy per his description. Records have been requested. No cause was ever established for the DVT. He has been on Xarelto 15 mg p.o. daily since then. 2 days after leaving the hospital for the DVT admission, he states he returned to the hospital for fluid overload and was diagnosed with A. fib with RVR. However he is not on any rate control medications currently. Not currently on any diuretics. Review of systems negative for fever Course: Patient was intially admitted for cholecystitis but was also noted to be in acute on chronic systolic CHF and treated for it with IV diuretics. Patient's echo showed EF 15-20% possibly non ischemic cardiomyopathy. Patient had angio done at [facility] prior to admission to [facility]. RCA was unable to be visualized and therefore stress test was performed here which was normal. Cardiology followed the patient during this admission. He was seen by gen surgery and treated with antibiotics while inpatient. Patient was placed on entresto by cardiology and setup with lifevest at discharge. He also had hyperthyroidism but was not taking his medications. He was restarted on methimazole. Please see latest progress note for details. He was discharged home with close follow up with cardiology, endocrinology and gen surgery. Please see latest progress note for more details. Physical Exam Narrative: EXAM NARRATIVE: General: Alert oriented x3, patient seen sitting up in bed appearing comfortable. Appears cachectic and frail. HEENT: Normocephalic, atraumatic, EOMI, breathing room air Cardio: Regular rate rhythm, normal S1-S2, no murmurs rubs gallops, Respiratory: Good bilateral air entry, clear to auscultation bilaterally GI: Abdomen soft, abdomen nontender today.. Nondistended, bowel sounds + Behavior: Appropriate and cooperative Extremities: No lower extremity edema appreciated today. no cyanosis Discharge Data Data Completed and Pending: Completed Studies During Hospitalization Category Date Time Status CT abdomen pelvis w con* [id number] Stat Cat Scan 02/19/21 16:[address] MIBI [Sestamibi Stress Test Reque st Exams 02/23/21 07:24 Draft ] Routine XR chest 1V lupillo ble [id number] Stat Exams 02/19/21 18:12 Completed NM hepatobiliary w phar* [id number] Rout ine Nuc Med 02/21/21 07:55 Completed NM sudarshan perf SPECT r/s* [id number] Routin e Nuc Med 02/23/21 07:25 Completed CV. echo complete * [id number] Routine Ultrasound 02/20/21 00:45 Completed US gall bladder 7 [id number] Stat Ultrasound 02/19/21 16:17 Completed Pending at discharge Category Date Time Status RYLIE Profile Rheum atology AM LABS Lab 02/20/21 04:00 Results Blood Culture Sta t Lab 02/19/21 20:30 Results Labs from last 24 hours 02/24/21 02/20/21 04:25 04:00 Sodium 137 Potassium 4.6 Chloride 103 Carbon Dioxide 27 Anion Gap 11.6 BUN 23 H Creatinine 1.1 GFR Calculation 68.8 L Glucose 98 Calculated Osmolal ity 288 Calcium 8.9 GIOVANA-1 Antibody <1.0 neg SS-A Antibody <1.0 neg SS-B Antibody <1.0 neg Sm (Nunez) Antibod y <1.0 neg BOILERS INSPECTOR Antibody <1.0 neg Scl-70 Antibody <1.0 neg Centromere B Antib elsi <1.0 neg Vitals: Last Vital Signs Temp 97.9 F 02/24/21 09:14 Pulse 86 02/24/21 09:14 Resp 12 02/24/21 09:14 BP 108/61 02/24/21 09:14 Pulse Ox 95 02/24/21 11:08 Discharge Plan Discharge Patient Disposition: Home Condition: Stable Prescriptions: New furosemide 40 mg Tablet 40 mg PO DAILY@0800 30 Days Qty: 30 RF: 0 famotidine 20 mg Tablet 20 mg PO BID 20 Days Qty: 40 RF: 0 methimazole 5 mg Tablet 5 mg PO DAILY 30 Days Qty: 30 RF: 0 Xarelto 10 mg Tablet 20 mg PO DAILY 30 Days Qty: 60 RF: 0 Entresto 24-26 mg Tablet 1 tab PO BID 30 Days Qty: 60 RF: 0 potassium chloride 10 mEq capsule, extended release 10 meq PO DAILY 30 Days Qty: 30 RF: 0 sucralfate 1 gram tablet 1 g PO BID 14 Days Qty: 28 RF: 0 Discontinued esomeprazole magnesium [Nexium] 20 mg Capsule,Delayed Release(Dr/Ec) 20 mg PO DAILY RF: 0 Xarelto 2.5 mg Tablet 2.5 mg PO QAM RF: 0 Discharge Orders: Discharge Order (Routine); Ordered 02/24/21 Ordered By: Katrin Pruett Other Ambulatory Orders: Sleep Study W Sleep Stage (Routine) Timeframe: 1 Week Facility: [facility] - Location: [facility] Ordered By: Katrin Pruett Referrals: Alyson Garcia APRN [Nurse Practitioner] - (Please call Truong Palma's office and ask them to fax your records [phone]. Once Alyson Garcia APRN has gone over them, they will call you to schedule an apppointment ) Shanon Salas MD [Physician] - 03/31/21 10:00 am (You have a cardiology followup with Dr. Salas at [facility] on March 31 at 10:00am) Mukund Dejesus MD [Physician] - 03/10/21 11:30 am (You have a Surgical followup with Dr. Dejesus at his office on March 10 at 11:30am) Khushboo Tse FNP [Nurse Practitioner] - 03/03/21 2:15 pm (You have a post procedure followup with DAWN Castillo at [facility] on at 2:15pm) Dong Chi MD [Physician] - 03/04/21 9:30 am (You have an appointment with Dr. Chi at Endocrinology on March 04 at 9:30am) Discharge Diet: Cardiac, Low Salt, Low Cholesterol, Low Fat and GI Soft Discharge Activity: Increase activity as tolerated Patient Instructions: Atrial Fibrillation, Famotidine (By mouth), Furosemide (By mouth), Sucralfate (By mouth), Potassium Chloride (By mouth), Amoxicillin/Clavulanate Potassium (By mouth), Methimazole (By mouth), Rivaroxaban (By mouth), Sacubitril/Valsartan (By mouth), Dilated Cardiomyopathy (DC), Cholecystitis (DC), Opioid Safety Activity Restrictions/Additional Instructions: [employer] Centralized Scheduling Department will be calling with the details of your sleep study. If you don't hear from them within a reasonable amount of time, please give them a call at [phone] Discharge Attestations Time Spent in Discharge Care*: less than 30 min Quality Metrics Clinical Quality Measures During this hospital stay, did patient experience: None Coding Level of Care Code Acute Chg FW DC note Diagnoses Acute on chronic systolic heart failure I50.23 Right upper quadrant pain R10.11 Atrial fibrillation I48.91 Atrial fibrillation type: unspecified Nonischemic dilated cardiomyopathy I42.0
--- NOTE | 2021-02-24 14:13 | PC.NURSE ---
Physician notified regarding potassium of 4.6 and instructed to hold 15:00 dose of 20MEQ
--- NOTE | 2021-02-24 16:10 | PC.NURSE ---
Patient lifevest was placed prior to discharge by MAG Remy. Patient education provided, no questions or concerns. Pt left with spouse. VS stable upon departure.
--- NOTE | 2021-03-29 16:54 | PC.SOCIAL ---
patient left message wanting Dr Pruett to prescribe additional medications. Call returned. Patient indicates he was to be set up with [facility] but when hospital staff tried to schedule appt they would not do so without records etc being sent. He cant see Dr Guerin since his insurance wont approve per his report. It has been a month since he has been seen by Dr Pruett. It was discussed with patient that it would not be safe for her to reorder medication after this time period without an evaluation. Call placed to Dr Pruett who agrees that patient has serious medical concerns and she is not able to see patients for primary care. If he cant get in with a provider he is high risk and she suggest he return to ED or to Urgent care for Evaluation. Call placed to patient and again offered to call [facility] myself to make appt and explained what Dr Pruett Recommends. Patient refuses to go to see [facility] and indicates he will pay out of pocket to see dr in [facility] if he has to. He was reminded he should not wait two days to be seen but does need to keep appt with Dr Salas on 03/31/2021. This nurse also offered to call our [facility] clinic to get an appt as well. Patient indicates if this is needed he will let me know tomorrow.
== END 2021-02-24 15:59 | disposition home or self-care (01) | DRG 292 ==
LOC: ER 20:19 → CSU 02-20 05:39
PROVIDERS: Family Medicine; Physician Assistant; Admitting Provider Student in an Organized Health Care Education/Training Program; Emergency Provider Emergency Medicine; PCP Family Medicine; Visit Provider Internal Medicine
DX: I50.23 Acute on chronic systolic (congestive) heart failure (principal); K81.0 Acute cholecystitis; N17.9 Acute kidney failure, unspecified; I42.0 Dilated cardiomyopathy; I48.91 Unspecified atrial fibrillation; Z86.718 Personal history of other venous thrombosis and embolism; F17.210 Nicotine dependence, cigarettes, uncomplicated; E05.90 Thyrotoxicosis, unspecified without thyrotoxic crisis or storm; Z91.14 Patient's other noncompliance with medication regimen; Z79.01 Long term (current) use of anticoagulants
CPT/HCPCS: 36415; 71045; 74177; 76705; 78227; 78452; 80048; 80053; 80076; 81001; 82550; 83605; 83690; 83735; 83880; 84439; 84443; 84484; 85025; 86160; 86162; 86235; 86255; 86376; 86705; 86706; 86709; 86803; 87040; 87340; 93005; 93017; 93306; 96365; 96372; 96375; 96376; 99285; A9500; A9537; J1170; J1650; J1885; J1940; J2270; J2405; J2543; J2785; J3010; J3490; J7030; Q9967

== ENCOUNTER 2021-03-17 20:00 | Outpatient (CLI) | payer MEDICARE, SELFPAY | END 2021-03-17 20:01 | disposition home or self-care (01) | LOC: SLEEP 03-18 09:59 | PROVIDERS: PCP Family Medicine; Visit Provider Internal Medicine | DX: G47.30 Sleep apnea, unspecified (principal); E03.9 Hypothyroidism, unspecified; E05.90 Thyrotoxicosis, unspecified without thyrotoxic crisis or storm; N30.90 Cystitis, unspecified without hematuria; I48.91 Unspecified atrial fibrillation; I42.9 Cardiomyopathy, unspecified; I50.9 Heart failure, unspecified; Z87.891 Personal history of nicotine dependence | CPT/HCPCS: 80048; 83880; 95810; 99204 ==

== ENCOUNTER 2021-04-08 11:45 | Day surgery (SDC) | payer MEDICARE, SELFPAY ==
[2021-04-08 11:41] VITALS: BMI 19.2
--- NOTE | 2021-04-08 12:09 | ANES.PREANE2 ---
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 Salas for cardiac clearance in february. Patient was not in active decompensation and he was given cardiac clearance 02/23/21 Myocardial perfusion scan IMPRESSIONS 1. Myocardial perfusion imaging revealing areas of persistent decreased uptake in the anteroseptal, inferoseptal and inferior wall regions,,of most likely represent attenuation artifacts. 2. Markedly diminished elevation fraction of 18%. 3. LV wall motion analysis revealing severe diffuse hypokinesia of the left ventricle. 4. Markedly dilated left ventricle with an end-systolic volume over 185 ml. No significant coronary ischemia, based on the above findings Sestamibi stress test CONCLUSION: 1. No significant EKG changes with the LexiScan infusion 2. No LexiScan induced chest pain or cardiac arrhythmia 3. Normal blood pressure and heart rate response 4. Sestamibi/sestamibi perfusion scan pending; see separate report. Echo 2020 CONCLUSIONS Severe diffuse hypokinesis of the left ventricle with ejection fraction of around 20%. Mildly increased left ventricular cavity size. Mild biatrial enlargement. Thickened mitral valve. Mild mitral valve regurgitation. Thickened aortic valve. Mild tricuspid valve regurgitation. Estimated pulmonary artery peak systolic pressure of 40 mmHg There are no intracardiac masses. There is no pericardial effusion. Anesthetic Plan: ASA status: 4 Anesthesia: General Other: Consider A-line Risk of > 500 ml blood loss (7ml/kg in children): No Other Pertinent Information: Discussed with patient increased risk of anesthesia in setting of cardiomyopathy. Patient wishes to proceed [facility] Anesthesia PFSH: Medical History Atrial fibrillation Chronic anticoagulation DVT (deep venous thrombosis) August 2020 Rotator cuff arthropathy Surgical History History of appendectomy Family History Grandfather Cancer Mother Cancer Father CAD (coronary artery disease), Onset Age: 50 Dementia Diabetes Denies family history of Clotting disorder Chronic kidney disease (CKD) Suicide Anesthesia complication Bleeding disorder Lung disease Stroke Social History Smoking and tobacco status: current some day smoker Second hand smoke exposure: No Smoking risk assessment/counseling performed?: No Alcohol intake: former Desire information about alcohol rehabilitation?: No Counseling given: No Desire information about substance/drug rehabilitation?: No Counseling given: No Adopted: No Caregiver/support person: No Lives independently: Yes Household members: spouse Housing: House Marital status: Number of children: 1 Highest education level completed: High School Graduate service: Yes Current occupational status: disabled Pets and animals: Yes History of recent travel: No Leisure activites: hunting and fishing Sexually active: No Current gender identity: Male Jacquelyn/Denominational: Sabianist Special jacquelyn needs: No Agree to transfusion: Yes Data Anesthesia CBC & Chem 7: 04/08/21 11:45 Cardiac Studies: Echocardiogram 02/20/21
[2021-04-08 12:10] LABS: INR 1.91 (0.8-1.2)
[2021-04-08 12:16] LABS: Anion Gap 10.4 (5-19); Blood Urea Nitrogen 19 mg/dL (6-20); Calcium 8.1 mg/dL (8.5-10.5); Carbon Dioxide 23 mmol/L (22-29); Chloride 110 mmol/L (98-107); Glomerular Filtration Rate 76.7 mL/min (90-130); Glucose 123 mg/dL (65-115); Osmolality Calculated 292 mOsm/kg (285-295); Potassium 4.4 mmol/L (3.5-5.1); Sodium 139 mmol/L (136-145)
== END 2021-04-08 13:00 | disposition home or self-care (01) ==
LOC: OR 04-11 10:48
PROVIDERS: Anesthesiology; PCP Family Medicine; Visit Provider Surgery
DX: K81.1 Chronic cholecystitis (principal); Z01.818 Encounter for other preprocedural examination
CPT/HCPCS: 80048; 85610

== ENCOUNTER → 2021-04-08 12:48 | Outpatient (BNVA) | payer MEDICARE, SELFPAY | PROVIDERS: PCP Family Medicine; Visit Provider Surgery | DX: Z20.822 Contact with and (suspected) exposure to COVID-19 (principal); K81.1 Chronic cholecystitis | CPT/HCPCS: 87635 ==

== ENCOUNTER → 2021-04-28 00:01 | Outpatient (BNVA) | payer MEDICARE, SELFPAY | PROVIDERS: PCP Family Medicine; Visit Provider Surgery | DX: Z01.812 Encounter for preprocedural laboratory examination (principal) | CPT/HCPCS: 87635 ==

== ENCOUNTER 2021-05-03 10:52 | Day surgery (SDC) | payer MEDICARE, SELFPAY ==
[2021-05-02 09:25] VITALS: BMI 18.7
[2021-05-03 08:10] VITALS: BP 130/71; PULSE 91; RESP 18; TEMP 36.6; O2SAT 98
[2021-05-03] MEDS: sodium chloride 0.9% 1,000 ML 30 ML IV (08:50)
[2021-05-03] MEDS: heparin 5,000 unit/mL INJ 1 mL 2000 UNIT SUBCUT (08:51)
--- NOTE | 2021-05-03 09:11 | PC.NURSE ---
AFTER DISCUSSING THE RISKS AND BENEFITS OF THIS SURGERY IN REGARDS TO PATIENTS CARDIAC STATUS, PATIENT HAS DECIDED TO NOT GO FORWARD WITH THIS SURGERY AND GET A SECOND OPINION
--- NOTE | 2021-05-03 09:38 | P.ANESUD_ITS ---
Pre-Anesthetic Update Pre-Anesthetic Assessment: Date of Surgery/Procedure: 05/03/21 Preop Renuka gnosis: Chronic cholecystitis Proposed Procedure: Operation Date: 05/03/21 10:20 Proposed Procedures p Laparoscopic poss Open Cholecystectomy 72832 K81.1(Not Applicable) - Mukund Dejesus MD Any changes to Pre-Anesthetic Assessment?: No Last Intake: Intake Last Liquid Date 05/02/21 Last Liquid Time 21:00 Last Solid Date 05/02/21 Last Solid Time 18:00 Vitals: Temperature 98 F 05/03/21 08:10 Temperature Source Temporal Artery S can 05/03/21 08:10 Pulse Rate 91 05/03/21 08:10 Respiratory Rate 18 05/03/21 08:10 Blood Pressure 130/71 05/03/21 08:10 Blood Pressure Radha n 90 05/03/21 08:10 Pulse Oximetry 98 05/03/21 08:10 Oxygen Delivery Me thod 05/03/21 08:13 Exam: Pre-Anes Outpt Exam: alert, oriented x 3 and regular rate & rhythm Additional Exam Findings (including area of procedure): Very poor EF 18-20%, however functional reportedly good--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
--- NOTE | 2021-05-03 11:06 | W.PM.OPSFHP ---
Same Day Surgery H&P Indication for Procedure/HPI DATE OF PROCEDURE: May 03, 2021 CHIEF COMPLAINT/INDICATIONFOR SURGICAL PROCEDURE: I am here for surgery PREOP DIAGNOSIS: Chronic cholecystitis PLANNED PROCEDRUE: Operation Date: 05/03/21 10:20 Proposed Procedures p Laparoscopic poss Open Cholecystectomy 59268 K81.1(Not Applicable) - Mukund Dejesus MD This is a 60 years old gentleman was seen and evaluated before in the hospital and as an outpatient with the plan to perform a laparoscopic cholecystectomy after being cleared by cardiology service. The plan was to have the patient off his blood thinners Xarelto for 2 days prior to surgery and to be bridged with therapeutic Lovenox, unfortunately the patient was not interested to receive his shots because he does want to give shots to himself and he does not feel comfortable taking any injections prior to surgery. Subsequently the patient comes today for elective laparoscopic cholecystectomy and with my underlying impression that the patient's ejection fraction was 25%. After further discussing the case with Dr. Abreu the anesthesiologist he found out that the patient's ejection fraction was 18% per different study. Myocardial perfusion scan nuclear medicine: IMPRESSIONS 1. Myocardial perfusion imaging revealing areas of persistent decreased uptake in the anteroseptal, inferoseptal and inferior wall regions,,of most likely represent attenuation artifacts. 2. Markedly diminished elevation fraction of 18%. 3. LV wall motion analysis revealing severe diffuse hypokinesia of the left ventricle. 4. Markedly dilated left ventricle with an end-systolic volume over 185 ml. No significant coronary ischemia, based on the above findings Patient was supposed to get his surgery back in April 13 but that was postponed by me as I was going to be out of town and subsequently the patient was rescheduled today for elective procedure, and was also was found to have that the patient was not compliant by his LifeVest as per his description as it does irritate his neck. ROS All systems have been reviewed negative except as per the above or per problem list Medications/Allergies* Home Medications Medication Instructions Recorded Confirmed Type aspirin 81 mg PO DAILY 04/08/21 05/03/21 History furosemide 40 mg PO DAILY 04/08/21 05/03/21 History lisinopril 2.5 mg PO DAILY 04/08/21 05/03/21 History methimazole 5 mg PO DAILY 04/08/21 05/03/21 History potassium chloride 10 meq PO DAILY 04/08/21 05/03/21 History rivaroxaban [Xarelto] 20 mg PO DAILY 04/08/21 05/02/21 History Allergies/Adverse Reactions Allergy/AdvReac Type Severity Reaction Status Date / Time Anesthetics - Amide Type - Allergy violence Verified 05/03/21 11:08 Select A chlorhexidine Allergy ALGY-Rash Verified 05/03/21 11:08 Pertinent History/Comorbid Conditions* Medical History (Updated 04/02/21 @ 10:48 by Mukund Dejesus MD) Atrial fibrillation Chronic anticoagulation DVT (deep venous thrombosis) August 2020 Rotator cuff arthropathy Surgical History (Updated 02/20/21 @ 06:12 by Renetta Andres MD) History of appendectomy Family History (Updated 03/17/21 @ 14:25 by Cami Anderson RN) Diabetes Father CAD (coronary artery disease) Father, Onset Age: 50 Dementia Father Cancer Grandfather Mother Denies family history of Clotting disorder Chronic kidney disease (CKD) Suicide Anesthesia complication Bleeding disorder Lung disease Stroke Social History Smoking and tobacco status: current some day smoker Second hand smoke exposure: No Smoking risk assessment/counseling performed?: No Alcohol intake: former Desire information about alcohol rehabilitation?: No Counseling given: No Desire information about substance/drug rehabilitation?: No Counseling given: No Adopted: No Caregiver/support person: No Lives independently: Yes Household members: spouse Housing: House Marital status: Number of children: 1 Highest education level completed: High School Graduate service: Yes Current occupational status: disabled Pets and animals: Yes History of recent travel: No Leisure activites: hunting and fishing Sexually active: No Current gender identity: Male Jacquelyn/Yazidism: Mandaen Special jacquelyn needs: No Agree to transfusion: Yes Pertinent Exam Findings alert and oriented x 3 Recommendations Surgery/Procedure today (See the plan) Other Plans: After thorough history physical examination and reviewing the chart and further discussion with the anesthesia provider and talking with the patient and his spouse, explaining for him the risks benefits alternatives and indications, as the patient have ejection fraction of 18% in addition that he did not receive the therapeutic Lovenox and has not been compliant with the LifeVest, it appears to me that risks with proceeding with surgery outweighs the benefits. Particularly higher risk of mortality and morbidity and not receiving his blood thinners with the bridging Lovenox as being recommended by cardiology, patient would put himself at the higher risk for stroke. And other potential complications related to thromboembolism I tried to explain for the patient the risk his taking, by proceeding with surgery versus conservative measures also his spouse mentioned about the potential complications associated with nonsurgical approach which is well understood yet given the fact if the patient stay away from unhealthy diet and continue conservative measures the chances of getting complicated gallbladder disease is pretty small and unless it becomes an emergency matter patient also should benefit from further intervention accordingly including but not limited placement of a cholecystostomy tube for drainage. But the patient does not want to discuss further and he felt that he would like to have a second opinion with regard to his surgery and he decided not to proceed. The discussion took place in the presence of the nursing staff Cami Pierson and Mart. I will make myself available for further discussing the case with cardiology service and I did make it very clear for the patient that I if I can be of help to facilitate for him to have a second opinion certainly I would not hesitate to help out Assurance and education All questions have been answered and all concerns have been addressed to patient's satisfaction. Coding Level of Care Code Acute Territory Supervisor for Rene Uriostegui
== END 2021-05-03 11:56 | disposition home or self-care (01) ==
PROVIDERS: PCP Family Medicine; Visit Provider Surgery
PROC: 0FT44ZZ Resection of Gallbladder, Percutaneous Endoscopic Approach (ICD-10-PCS; CPT 47562; principal; 2021-05-03 10:10)
DX: K81.1 Chronic cholecystitis (principal); Z53.8 Procedure and treatment not carried out for other reasons; Z79.01 Long term (current) use of anticoagulants; Z79.82 Long term (current) use of aspirin; I48.91 Unspecified atrial fibrillation; Z86.718 Personal history of other venous thrombosis and embolism; Z82.49 Family history of ischemic heart disease and other diseases of the circulatory system; Z83.3 Family history of diabetes mellitus; F17.210 Nicotine dependence, cigarettes, uncomplicated
CPT/HCPCS: J1644; J7030

== ENCOUNTER → 2021-08-03 10:25 | Outpatient (BNVA) | payer MEDICARE, SELFPAY | PROVIDERS: PCP Family Medicine; Visit Provider Internal Medicine Cardiovascular Disease | DX: I50.22 Chronic systolic (congestive) heart failure (principal); I42.0 Dilated cardiomyopathy; I48.91 Unspecified atrial fibrillation | CPT/HCPCS: 99214 ==

== ENCOUNTER → 2021-08-30 14:08 | Outpatient (BNVA) | payer MEDICARE, SELFPAY | PROVIDERS: PCP Family Medicine; Visit Provider Internal Medicine | DX: E05.00 Thyrotoxicosis with diffuse goiter without thyrotoxic crisis or storm (principal); E06.3 Autoimmune thyroiditis; I48.91 Unspecified atrial fibrillation; I50.22 Chronic systolic (congestive) heart failure; Z87.891 Personal history of nicotine dependence | CPT/HCPCS: 84439; 84443; 84480; 99214 ==

== ENCOUNTER 2021-09-20 14:05 | Outpatient (CLI) | payer MEDICARE, SELFPAY ==
--- NOTE | 2021-09-20 14:30 | USCV_ITS ---
Ondina Wild Age: 61 Gender: M : 1960 Exam Date: 09/20/2021 14:45 Ordering Phys: Shanon Salas MD ([email or web address]) Technologist: Foreign Gonzalez [place] [facility] [place]: CARDIOM[place]ATH[place] BP: 145 / 88 HR: 80 Rhythm: Atrial fibrillation Technical Quality: Adequate MEASUREMENTS (Male / Female) Normal Values 2D ECHO LV Diastolic Diameter PLAX 4.9 cm 4.2 - 5.9 / 3.9 - 5.3 cm LV Systolic Diameter PLAX 4.3 cm IVS Diastolic Thickness 0.9 cm 0.6 - 1.0 / 0.6 - 0.9 cm IVS Systolic Thickness 0.8 cm LVPW Diastolic Thickness 1.0 cm 0.6 - 1.0 / 0.6 - 0.9 cm LVPW Systolic Thickness 0.9 cm LVOT Diameter 2.0 cm LV Ejection Fraction 2D Teich 28.0 % LV Ejection Fraction MOD 2C 29.8 % LV Ejection Fraction 2C AL 29.8 % LA Diameter 3.1 cm LA Width 3.6 cm LA Height 4.1 cm RA Width 3.4 cm RA Height 4.4 cm Aorta at Sinotubular Diameter 2.6 cm IVC Diameter 2.3 cm M-MODE Aortic Annulus Diameter 2.2 cm LA Ao Ratio MM 1.4 MV E Point Septal Separation 0.7 cm DOPPLER AV Peak Velocity 105.0 cm/s LVOT Peak Velocity 80.0 cm/s AV Area Cont Eq vti 2.0 cm squared AV Area Cont Eq pk 2.5 cm squared MV Peak Velocity 129.0 cm/s MV Area PHT 4.3 cm squared MV E' Velocity 69.4 cm/s Mitral E to MV E' Ratio 8.3 Mitral E to LV E' Lateral Ratio 7.7 Mitral E to LV E' Septal Ratio 9.1 TR Peak Velocity 236.3 cm/s TR Peak Gradient 22.3 mmHg TR Mean Velocity 185.5 cm/s TR Mean Gradient 15.5 mmHg TR Velocity Time Integral 63.9 cm Right Atrial Pressure 8.0 mmHg Pulmonary Artery Systolic Pressu 30.3 mmHg RV Acceleration Time 0.1 s RV Ejection Time 0.3 s RV AcT/ET 0.4 FINDINGS Left Ventricle Normal left ventricular size and systolic function, EF 30 %. Diffuse hypokinesia left ventricle. Mildly dilated LV cavity Right Ventricle The right ventricle is normal in size and function. Right Atrium The right atrium is normal in size. Left Atrium Mildly increased left atrial size. The interatrial septum appears to be noticeable and bulging to the right side. Aneurysm is 1.3 x 1.9 cm Mitral Valve Mild mitral valve regurgitation. Aortic Valve . Thickened aortic valve. Tricuspid Valve Mild tricuspid valve regurgitation. Estimated pulmonary artery peak systolic pressure 30 mmHg Pulmonic Valve No gross abnormalities noted Pericardium Normal pericardium without effusion. Aorta Normal aortic annulus size. IVC The inferior vena cava ,pulmonary and hepatic veins appear normal. CONCLUSIONS 1. Mildly dilated left ventricle with a diminished ejection fraction of 30%. 2. Mildly dilated left atrium. An atrial septal aneurysm was noted measuring 1.3 x 1.9 cm. No interatrial shunt. Noted based on the color-flow Doppler examination. 3. Thickened aortic valve no stenosis. 4. No intracardiac masses or pericardial effusion Compared to the study from 02/20/2021, there is some improvement in the LV ejection fraction from 20% to 30% Dr Shanon Salas MD [facility] (Electronically Signed) Final Date: 21 Sep 2021 18:00 S
== END 2021-09-20 14:06 | disposition home or self-care (01) ==
PROVIDERS: PCP Family Medicine; Visit Provider Internal Medicine Cardiovascular Disease
DX: I42.9 Cardiomyopathy, unspecified (principal); R06.00 Dyspnea, unspecified; I71.9 Aortic aneurysm of unspecified site, without rupture
CPT/HCPCS: 93306

== ENCOUNTER → 2021-11-02 10:17 | Outpatient (BNVA) | payer MEDICARE, SELFPAY | PROVIDERS: PCP Family Medicine; Visit Provider Internal Medicine Cardiovascular Disease | DX: I42.0 Dilated cardiomyopathy (principal); I48.91 Unspecified atrial fibrillation; Z79.01 Long term (current) use of anticoagulants; I50.22 Chronic systolic (congestive) heart failure; E05.90 Thyrotoxicosis, unspecified without thyrotoxic crisis or storm; Z87.891 Personal history of nicotine dependence | CPT/HCPCS: 80048; 83880; 84439; 84443; 84480; 99214 ==

== ENCOUNTER → 2021-12-21 11:05 | Outpatient (BNVA) | payer MEDICARE, SELFPAY | PROVIDERS: PCP Family Medicine; Visit Provider Nurse Practitioner Family | DX: I42.0 Dilated cardiomyopathy (principal) | CPT/HCPCS: 99213 ==

== ENCOUNTER → 2022-02-08 13:38 | Outpatient (BNVA) | payer MEDICARE, SELFPAY | PROVIDERS: PCP Family Medicine; Visit Provider Internal Medicine Cardiovascular Disease | DX: R06.02 Shortness of breath (principal); I50.22 Chronic systolic (congestive) heart failure; I42.0 Dilated cardiomyopathy; Z79.01 Long term (current) use of anticoagulants; I48.91 Unspecified atrial fibrillation; F17.200 Nicotine dependence, unspecified, uncomplicated | CPT/HCPCS: 80048; 83880; 99214 ==

== ENCOUNTER 2022-06-02 14:06 | Emergency (ER) | payer MEDICARE, SELFPAY ==
[2022-06-02 14:39] VITALS: BP 113/81; PULSE 89; TEMP 36.4; O2SAT 95; BMI 21.2
--- NOTE | 2022-06-02 14:59 | XR_ITS ---
WS: [id number] Portable AP upright chest, 06/02/2022 Clinical Data: cough and fevers Comparison: Portable chest, 02/19/2021 Findings: No nodules, masses or effusions are seen. The heart is normal. The pulmonary vascularity is not increased. No pneumonia or pneumothorax is seen. There are healed right ninth and 10th posterior lateral rib fractures XR/XR chest 1V portable [id number] Impression: Negative chest.
--- NOTE | 2022-06-02 15:08 | W.ED.URI ---
HPI - URI/Sore Throat General: Chief Complaint: Upper Respiratory Infection Stated Complaint: congestion, sob Time Seen by Provider: 06/02/22 14:45 History of Present Illness: Patient is a 61-year-old male comes to the ED with upper respiratory symptoms. Patient says for the past 3 weeks he has been having nasal drainage and congestion, productive cough, fever, chills, body aches. He coughs up greenish sputum. He endorses having some right lung pleuritic pain. Denies any nausea/vomiting, chest pain, abdominal pain, bladder or bowel symptoms. Denies any known sick contacts. Associated symptoms: Reports chills, fever(s) and nasal congestion; Deny abdominal pain, chest pain, diarrhea, headache(s), nausea or vomiting Review of Systems Const: Reports: fever(s), chills and body aches; Denies: fatigue Eyes: Denies: change in vision or eye discomfort ENMT: Reports: nasal discharge and nasal congestion; Denies: throat pain or odynophagia Card: Denies: chest pain, palpitations, edema, swelling of feet/ankles, dyspnea on exertion or orthopnea Resp: Reports: productive cough and pain on inspiration (Right lung); Denies: dyspnea or non-productive cough GI: Denies: abdominal pain, nausea, vomiting, diarrhea, constipation or hematochezia : Denies: flank pain, difficulty urinating, dysuria or hematuria Musc: Denies: neck pain, back pain or extremity swelling Skin/Breast: Denies: rash or new lesions Neuro: Denies: headache(s), numbness in extremities or weakness in extremities [facility] ED PFSH: Medical History Atrial fibrillation Chronic anticoagulation DVT (deep venous thrombosis) August 2020 Rotator cuff arthropathy Surgical History History of appendectomy Family History Grandfather Cancer Mother Cancer Father CAD (coronary artery disease), Onset Age: 50 Dementia Diabetes Denies family history of Clotting disorder Chronic kidney disease (CKD) Suicide Anesthesia complication Bleeding disorder Lung disease Stroke Social History Smoking and tobacco status: current some day smoker Second hand smoke exposure: No Smoking risk assessment/counseling performed?: No Alcohol intake: former Desire information about alcohol rehabilitation?: No Counseling given: No Desire information about substance/drug rehabilitation?: No Counseling given: No Adopted: No Caregiver/support person: No Lives independently: Yes Household members: spouse Housing: House Marital status: Number of children: 1 Highest education level completed: High School Graduate service: Yes Current occupational status: disabled Pets and animals: Yes History of recent travel: No Leisure activites: hunting and fishing Sexually active: No Current gender identity: Male Jacquelyn/Rastafarian: Cheondoism Special jacquelyn needs: No Agree to transfusion: Yes Physical Exam Const: COMMON NORMALS: patient oriented x3 HENMT: COMMON NORMALS: normocephalic HEAD & SCALP: normocephalic MOUTH: Normal oral and palatal mucosa present THROAT: posterior oropharynx normal and uvula midline Neck/C-Spine: COMMON NORMALS: supple GENERAL: Yes normal visual inspection Resp: COMMON NORMALS: normal respiratory effort, No retractions and No use of accessory muscles AUSCULTATION: diminished lung sounds bilateral in the lower lung burgess Cardio: COMMON NORMALS: regular rate, regular rhythm, S1 normal heart sound present, S2 normal heart sound present, No gallops present (Cardio), No clicks present (Cardio), No murmurs present (Cardio) and Peripheral pulses 2+ throughout RATE: regular rate RHYTHM: regular rhythm HEART SOUNDS: S1 normal heart sound present and S2 normal heart sound present PERIPHERAL PULSES: Peripheral pulses 2+ throughout GI: COMMON NORMALS: Normal to inspection, nondistended, normoactive bowel sounds present, Soft to palpation, non-tender and no masses PALPATION: Yes Soft to palpation : COMMON NORMALS: Yes no CVA tenderness BLADDER/KIDNEY EXAM: Yes no CVA tenderness Back/Pelvis: COMMON NORMALS: no CVA tenderness Extremity: COMMON NORMALS: normal to inspection Neuro: COMMON NORMALS: patient oriented x3 GAIT: Yes Normal gait present Skin: GENERAL SKIN EXAM: dry skin Course Vital Signs: Vital signs: Vital Signs Temperature 97.5 F L 06/02/22 14:39 Pulse Rate 89 06/02/22 14:39 Blood Pressure 113/81 06/02/22 14:39 Pulse Oximetry 95 06/02/22 14:39 Oxygen Delivery Me thod 06/02/22 14:39 MDM - URI/Sore Throat Medical Decision Making Patient is a 61-year-old male who comes to the ED with upper respiratory symptoms and productive cough for the past 3 weeks. Patient refused any viral swab testing. Vitals are stable. Patient appears nontoxic in no acute distress or pain. He has some diminished bilateral lung sounds at the bases but the rest of exam is benign. Chest x-ray shows no pneumonia. Patient was diagnosed with bronchitis and was discharged home with a prescription for an antibiotic and steroid. Told to follow-up with his PCP within the next week for reevaluation. Return to ED precautions given. Patient understood and agreed with plan. Lab Data Radiology Impressions Chest X-Ray 06/02/22 14:59 Impression: Negative chest. Discharge Plan Discharge Patient Disposition: Home Clinical Impression: Bronchitis Condition: Stable Prescriptions: New azithromycin 250 mg tablet See Rx Instructions .ROUTE .COMPLEX Qty: 6 0RF Rx Instructions: For 250 mg dose pack: take 500 mg today (day 1), then 250 mg for 4 days (days 2-5) prednisone 20 mg tablet 20 mg PO BID 7 Days Qty: 14 0RF No Action Entresto 24-26 mg tablet 1 tab PO BID Qty: 180 3RF methimazole 10 mg tablet 10 mg PO DAILY Qty: 90 3RF Rx Instructions: Take one tablet by mouth daily. potassium chloride 10 mEq tablet extended release 10 meq PO .prn Discharge Orders: Discharge ED (Routine); Ordered 06/02/22 Ordered By: Alfredo Dutta Referrals: Frantz Guerin MD [Primary Care Provider] - Discharge Diet: Regular Discharge Activity: Increase activity as tolerated Patient Instructions: Acute Bronchitis (ED) Activity Restrictions/Additional Instructions: Follow-up with medical provider as directed. Take medications as prescribed. Return to the ER or your medical provider if condition worsens. Please read and understand discharge instructions. Thank you for choosing [facility] for your healthcare needs today. Please realize this is an emergency room and that we are providing you with a medical screening exam and this may not be complete and all inclusive of all the testing and or work up that you may need to determine your ailment or severity of your illness. It is very important that you follow up as instructed or that you return to the Emergency Department should you have concerns or if your condition changes or worsens in any way. Coding Level of Care Code ED Basin Finish Operator Tig Welder for Rene Uriostegui Exam Comprehensive
== END 2022-06-02 15:48 | disposition home or self-care (01) ==
PROVIDERS: Emergency Provider Physician Assistant; PCP Family Medicine
DX: J40 Bronchitis, not specified as acute or chronic (principal); F17.210 Nicotine dependence, cigarettes, uncomplicated
CPT/HCPCS: 71045; 99283

== ENCOUNTER → 2022-08-29 16:44 | Outpatient (BNVA) | payer MEDICARE, SELFPAY | PROVIDERS: PCP Family Medicine; Visit Provider Nurse Practitioner Family | DX: M25.571 Pain in right ankle and joints of right foot (principal) | CPT/HCPCS: 73610 ==